=== PATIENT | male | born 1975 | race Caucasian/White ===

== ENCOUNTER → 2018-05-13 | Outpatient (CLI) | payer MEDICARE, OTHER ==
[~2018-05-13] MED LIST: IOHEXOL 240 MG/ML 50ML VIAL. PO ONE; IOHEXOL 300 MG/ML 100ML VIAL. IV ONE
--- NOTE | 2018-05-13 14:57 | RAD ---
CT of the abdomen and pelvis with and without contrast 05/13/2018 INDICATION: Abdominal pain. COMPARISON STUDY: None available TECHNIQUE: Multidetector CT imaging of the abdomen pelvis is obtained both before and after the administration of intravenous contrast. FINDINGS: Partially visualized lung bases are unremarkable. There is a 1 cm hypodense lesion in the inferior posterior right liver (axial image 31). Lesion has nonspecific attenuation and enhancement characteristics. Small focus of hypodensity along the falciform ligament segment is suggestive of focal fatty infiltration. Spleen is unremarkable. There is a possible punctate nonobstructing stone in the superior pole left kidney (noncontrast enhanced coronal image 57. No other evidence of nephrolithiasis is seen. There is no hydronephrosis or acute obstructive uropathy. Pancreas is grossly unremarkable. Gallbladder is grossly unremarkable. No bowel obstruction is identified. Increased stool is noted throughout the colon. Correlate with evidence of constipation. The appendix is unremarkable in appearance. The bladder is grossly unremarkable in appearance. No significant free fluid or free air seen in the abdomen or pelvis. No evidence of acute osseous abnormality is identified. IMPRESSION: 1. Possible punctate nonobstructing stone, superior pole left kidney 2. 1 cm nonspecific hypodense lesion inferior posterior right liver. Consider hepatic protocol MRI for further characterization. 3. Increased stool throughout the colon. Correlate with clinical evidence of constipation CT DOSING PQRS STATEMENT: One or more of the following individualized dose reduction techniques were utilized for this examination: 1. Automated exposure control 2. Adjustment of the mA and/or kV according to patient size 3. Use of iterative reconstruction technique. Electronically signed by: Kali Rogers MD (05/13/2018 2:54 PM) [facility]
== END | disposition home or self-care (01) ==
LOC: CT 10:13
PROVIDERS: ATTEND Family Medicine
DX: K76.9 Liver disease, unspecified (principal); K59.00 Constipation, unspecified
CPT/HCPCS: 74178; Q9966; Q9967

== ENCOUNTER → 2019-05-12 | Outpatient (CLI) | payer MEDICARE, OTHER ==
--- NOTE | 2019-05-12 13:22 | RAD ---
EXAM: Bilateral hips and pelvis, 5 views. HISTORY: Pain. COMPARISON: None. FINDINGS: A frontal view the pelvis and frontal and frog-leg views of both hips are obtained. There is no fracture, dislocation or subluxation. There is contrast within the colon and bladder due to a recent CT. There are few tiny benign bone islands. There is minimal suspected degenerative subchondral cyst formation involving the right greater than left femoral head-neck junction. IMPRESSION: 1. Minimal degenerative subchondral cyst formation involving the right greater than left femoral head-neck junction. 2. No acute osseous finding. Electronically signed by: María Garnica MD (05/12/2019 1:20 PM) [facility]
--- NOTE | 2019-05-12 14:20 | RAD ---
EXAM: CT ABDOMEN/PELVIS WITH CONTRAST. HISTORY: Left lower quadrant pain. TECHNIQUE: Computed tomography of the abdomen and pelvis was performed after the intravenous administration of iodinated contrast. COMPARISON: 05/13/2018. FINDINGS: Lung windows through the visualized portions of the bases reveal mild atelectasis. Bone windows reveal no suspicious lesions. A 13 mm hypoattenuating focus within hepatic segment 6 on image 36 is stable and likely a benign lesion such as a hemangioma. The gallbladder, pancreas, adrenal glands, spleen and kidneys are unremarkable. The appendix is not inflamed. There are no inflammatory changes in the left lower quadrant. There is no small bowel obstruction. There are no pathologically enlarged lymph nodes. IMPRESSION: 1. No cause for acute pain is identified. *One or more of the following individualized dose reduction techniques were utilized for this examination: 1. Automated exposure control. 2. Adjustment of the mA and/or kV according to patient size. 3. Use of iterative reconstruction technique. Electronically signed by: Ludwig Nunez MD (05/12/2019 2:18 PM) [facility]
== END | disposition home or self-care (01) ==
LOC: CT 10:02
PROVIDERS: ATTEND Family Medicine
DX: M25.852 Other specified joint disorders, left hip (principal); M25.851 Other specified joint disorders, right hip; R10.32 Left lower quadrant pain; J98.11 Atelectasis
CPT/HCPCS: 73521; 74177; Q9966; Q9967

== ENCOUNTER → 2019-06-05 | Day surgery (SDC) | payer MEDICAID, MEDICARE ==
[~2019-06-05] MED LIST changes: +GABA800T5 PO; -IOHEXOL 240 MG/ML 50ML VIAL. PO ONE; -IOHEXOL 300 MG/ML 100ML VIAL. IV ONE; +IV RINGERS,LACTATED 1000ML 1,000 ML IV SCH; +LEVO100T5 PO; +LIDOCAINE 2% PF 5 ML VIAL. ONE; +MIRT15TA90 PO; +PROPOFOL 40 ML IV ONE
[2019-06-05 14:15] VITALS: BP 115/65
--- NOTE | 2019-06-06 18:06 | PATHOLOGY ---
[facility] Accession Number: [id number] . 01 Material submitted: . colon - SIGMOID POLYP. Modifiers: sigmoid . 01 Clinical history: . Abdominal pain, rectal bleeding . 02 Diagnosis: Colon biopsies, sigmoid polyps: - Tubular adenoma (1). - Hyperplastic polyp (1). . (JPM:albertina; 06/06/2019) QMS 06/06/2019 0928 Local . 02 Comment: There is no high grade dysplasia or evidence of malignancy. . 02 Electronically signed: . Fritz Correa MD, Pathologist NPI- [id number] . 01 Gross description: . Received in formalin labeled "Juan Waldrop, sigmoid polyp," is a single segment of bee soft tissue measuring 0.5 cm in maximum dimension. The specimen is entirely submitted in cassette A1. (TSD; 06/05/2019) TOB/TOB 06/05/2019 1753 Local . 02 Pathologist provided ICD-10: D12.5, K63.5 . 02 CPT . 294146 Specimen Comment: A courtesy copy of this report has been sent to [phone], [phone] Specimen Comment: [id number] Specimen Comment: Report sent to and Performed at: 01 [facility] [address], [place], [place] [id number] MD Gurvinder Pisano MD Phone: [phone] Performed at: 02 [facility] [address] [place], [place] [id number] MD Fritz Correa MD Phone: [phone]
== END ==
LOC: ENDOS 12:29
PROVIDERS: ATTEND Internal Medicine Gastroenterology
DX: K92.1 Melena (principal); K63.5 Polyp of colon; K64.0 First degree hemorrhoids; F41.9 Anxiety disorder, unspecified; F32.9 Major depressive disorder, single episode, unspecified; M79.7 Fibromyalgia; E03.9 Hypothyroidism, unspecified; F15.90 Other stimulant use, unspecified, uncomplicated; F17.210 Nicotine dependence, cigarettes, uncomplicated; Z88.6 Allergy status to analgesic agent; Z72.89 Other problems related to lifestyle
CPT/HCPCS: 45380; J2001; J2704; 88305

== ENCOUNTER → 2019-06-11 | Outpatient (CLI) | payer MEDICARE, OTHER ==
[2019-06-05 14:15] VITALS: BP 115/65
[~2019-06-11] MED LIST changes: -IV RINGERS,LACTATED 1000ML 1,000 ML IV SCH; -LIDOCAINE 2% PF 5 ML VIAL. ONE; -PROPOFOL 40 ML IV ONE
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
== END | disposition home or self-care (01) ==
LOC: PNCL 10:46
PROVIDERS: ATTEND Anesthesiology
DX: M54.5 Low back pain (principal); M79.605 Pain in left leg; M79.604 Pain in right leg; M19.90 Unspecified osteoarthritis, unspecified site; M79.7 Fibromyalgia; F17.200 Nicotine dependence, unspecified, uncomplicated; Z88.6 Allergy status to analgesic agent; Z91.041 Radiographic dye allergy status
CPT/HCPCS: G0463

== ENCOUNTER → 2019-06-16 | Outpatient (CLI) | payer MEDICARE, OTHER ==
[2019-06-05 14:15] VITALS: BP 115/65
--- NOTE | 2019-06-16 12:27 | RAD ---
EXAMINATION: Magnetic resonance imaging (MRI) of the cervical spine without contrast 06/16/2019 10:30 AM HISTORY: Pain with radiculopathy in both arms and hands. TECHNIQUE: Multiplanar multi-weighted MRI of the cervical spine was performed without intravenous contrast using the standard cervical spine protocol. Contrast information: None administered COMPARISON: None available. FINDINGS: The alignment of the cervical spine is normal. Anterior cervical discectomy and fusion hardware is identified from C5 through C7. Vertebral bodies demonstrate normal signal intensity on all sequences. No acute fracture is identified; however, if trauma is suspected, a CT scan would be a more sensitive examination for fractures. The craniocervical junction is normal. The visualized portions of the skull base and the posterior fossa are normal. The spinal cord demonstrates normal signal intensity on all sequences. Mild disc height loss at C4-C5. No soft tissue abnormality is identified. Normal signal voids are present in the vertebral arteries. C2-C3: There is mild disc bulge. Mild left facet arthropathy. Mild left neuroforaminal stenosis. No spinal canal stenosis. C3-C4: There is mild disc bulge. No significant facet arthropathy. Mild left uncovertebral joint disease. Mild left neuroforaminal stenosis. No spinal canal stenosis. C4-C5: There is a posterior disc osteophyte complex. Mild facet arthropathy. No neuroforaminal or spinal canal stenosis. C5-C6: This level is fused. No neuroforaminal or spinal canal stenosis. C6-C7: This level is fused. No significant neuroforaminal or spinal canal stenosis. C7-T1: There is mild disc bulge. There is moderate facet arthropathy. Mild left uncovertebral joint disease. Mild left neuroforaminal stenosis. No spinal canal stenosis. IMPRESSION: Anterior cervical discectomy and fusion hardware is identified from C5 through C7. No evidence for hardware failure. Mild degenerative changes of the cervical spine as described in detail above. Electronically signed by: Bree Eubanks MD (06/16/2019 12:24 PM) [facility]
--- NOTE | 2019-06-16 12:37 | RAD ---
EXAMINATION: Magnetic resonance imaging (MRI) of the lumbar spine without contrast 06/16/2019 11:15 AM HISTORY: Pain with radiculopathy in both arms, hands, legs and feet TECHNIQUE: Multiplanar multi-weighted MRI of the lumbar spine was performed without intravenous contrast using the standard lumbar spine protocol. Contrast information: None administered. COMPARISON: None available. FINDINGS: There is minimal retrolisthesis of L5 on S1. Vertebral bodies demonstrate normal signal intensity on all sequences. There are no compression fractures. The conus medullaris terminates at the level of L1. The distal spinal cord signal intensity is normal. Schmorl's node is identified involving the superior endplate of L1 and L2 without significant height loss. There is disc desiccation at all levels from L2-L3 through L5-S1. Limited views of the abdomen and pelvis show no soft tissue abnormality. The aorta is normal. L1-L2: The disc is normal in configuration. There is no facet arthropathy. There is no neuroforaminal stenosis. There is no spinal canal stenosis. L2-L3: There is mild disc bulge. There is no facet arthropathy. There is no neuroforaminal stenosis. There is no spinal canal stenosis. L3-L4: The disc is normal in configuration. There is no facet arthropathy. There is no neuroforaminal stenosis. There is no spinal canal stenosis. L4-L5: There is mild disc bulge with central disc protrusion. There is mild facet arthropathy. There is mild neuroforaminal stenosis. There is no spinal canal stenosis. L5-S1: Mild disc bulge. There is mild to moderate facet arthropathy. There is mild left neuroforaminal stenosis. There is no spinal canal stenosis. IMPRESSION: Mild degenerative changes of the lumbar spine as described in detail above. Electronically signed by: Bree Eubanks MD (06/16/2019 12:34 PM) [facility]
== END ==
LOC: MRI 09:51
PROVIDERS: ATTEND Anesthesiology
DX: M51.16 Intervertebral disc disorders with radiculopathy, lumbar region (principal)
CPT/HCPCS: 72141; 72148

== ENCOUNTER → 2019-07-09 | Outpatient (CLI) | payer MEDICARE ==
[2019-06-05 14:15] VITALS: BP 115/65
--- NOTE | 2019-07-09 14:31 | PAIN ---
DATE OF SERVICE: 07/09/2019 PROGRESS NOTE FOR PAIN CLINIC DIAGNOSES: 1. Lumbar radiculopathy with lumbar degenerative disk disease, lumbar and lumbosacral spondylosis. 2. Cervical radiculopathy with cervical degenerative disk disease, post-cervical laminectomy syndrome and cervical spondylosis. HISTORY OF PRESENT ILLNESS: The patient is a 44-year-old male who returns for followup status post initial evaluation and status post recent MRI scans of both cervical and lumbar spines. We discussed these with the patient today with the cervical spine showing some degenerative changes, anterior cervical diskectomy and fusion hardware from C5 through C7. No evidence of hardware failure, mild degenerative changes throughout the lumbar spine showing mild degenerative changes of lumbar spine with some central disk protrusion at L4-L5, but otherwise no spinal stenosis or other abnormalities. The patient reports still significant pain in the low back, bilateral lower extremities in the hips and thighs, especially in the back itself with extension of the spine. Forward flexion, right and left lateral rotation and the base of the neck and shoulders, worse on the left than the right, but present bilaterally. The patient reports also pain in the neck itself with rotation as well as extension of the cervical spine. The patient reports it is aching, sharp, dull, shooting, tingling, burning, rates a 5 on a scale of 10 at its worst over the past week, 3 on average, 1 at its least and is a 3 today. The patient reports no new motor or sensory deficits, no bowel or bladder incontinence, but still significant pain, most significantly in the low back, but also in the neck causing some headaches as well. The patient reports no new motor or sensory deficits, no new bowel or bladder incontinence. PHYSICAL EXAMINATION: VITAL SIGNS: The patient's blood pressure 132/80, pulse 81, respirations 18, temperature 98.5 degrees Fahrenheit, height is 5 feet 11 inches, weighs 171 pounds. GENERAL: The patient is awake, alert, oriented, appropriate, very pleasant demeanor. HEENT: Shows normocephalic, atraumatic. Extraocular movements are intact and symmetrical. Oral cavity: Mucous membranes moist and pink. Dentition is intact. NECK: Shows anterior throat supple without palpable lymphadenopathy noted. Swallow reflex symmetrical. CHEST: Shows normal on inspection. Breath sounds are clear bilaterally. HEART: Shows S1, S2 clear. ABDOMEN: Soft, nontender, nondistended. BACK: Shows spine grossly in the midline. Cervical paraspinous muscle shows symmetrical on inspection, with palpation shows some moderate tenderness diffusely, bilaterally and diffusely without significant radiation. The patient does show increased pain with extension of the cervical spine, but not with forward flexion. Right and left lateral rotation is nonspecifically tender bilaterally. The patient has a well-healed surgical scar on the anterior throat. Swallow reflex symmetrical. Lower back shows lumbar paraspinous muscle shows symmetrical without evidence of atrophy or hypertrophy, normal lordotic curvature. Lumbar paraspinous muscle shows symmetrical, on palpation shows some moderate tenderness diffusely bilaterally throughout the upper, middle and lower distribution of the paraspinous muscles, more on the lower distribution, right and left equal increased pain with extension of the lumbar spine and axial loading in the low back, better with forward flexion, right and left lateral rotation is moderately tender bilaterally. EXTREMITIES: The patient's extremities show upper extremity deep tendon reflexes 2+ in the biceps, triceps tendons. Motor exam is strong with barber tool sharpener strength rated at 5/5. Lower extremities show 1+ in the patellar and tendo calcaneus tendons. Motor exam is strong with 5/5 dorsiflexion, extension, quadriceps and hamstring flexion. Peripheral pulses are 2+ radial, 1+ posterior tibia. No peripheral edema is noted in the upper or lower extremities. Options were discussed with the patient. The patient's old chart was reviewed as his current medication regimen updated. Current review of systems updated today as well. We will first fit the patient with a lumbar supportive back brace. We did discuss potential lumbar facet injections as well as his chief complaint is low back pain, which seems to be rotational and facetogenic in quality. The patient will consider this. We will have him return to clinic after a back brace is fitted but still significant pain. We will proceed with diagnostic lumbar facet joint injections at that time. ALEE MELVIN MD DR: JEFE/danielle JOB#: [id number] / [id number]
== END | disposition home or self-care (01) ==
LOC: PNCL 10:36
PROVIDERS: ATTEND Anesthesiology
DX: M51.16 Intervertebral disc disorders with radiculopathy, lumbar region (principal); M47.27 Other spondylosis with radiculopathy, lumbosacral region; M50.10 Cervical disc disorder with radiculopathy, unspecified cervical region; M96.1 Postlaminectomy syndrome, not elsewhere classified
CPT/HCPCS: G0463

== ENCOUNTER → 2019-11-05 | Outpatient (CLI) | payer MEDICARE, OTHER ==
[2019-06-05 14:15] VITALS: BP 115/65
[~2019-11-05] MED LIST changes: +BUPIVACAINE MPF 0.25% 10 ML VIAL. ONE; +IOHEXOL 180 MG/ML 10 ML VIAL. ONE; +methylPREDNISolone ACETATE 40 MG/ML VIAL. ONE; +methylPREDNISolone ACETATE 80 MG/ML VIAL. ONE
--- NOTE | 2019-11-05 13:13 | PAIN ---
DATE OF SERVICE: 11/05/2019 PROGRESS NOTE FOR PAIN CLINIC DIAGNOSES: 1. Lumbar radiculopathy with lumbar degenerative disk disease and lumbar spondylosis. 2. Cervical radiculopathy with cervical degenerative disk disease and cervical post-laminectomy syndrome. 3. Cervical spondylosis. HISTORY OF PRESENT ILLNESS: The patient is a 44-year-old male who returns for followup status post initial evaluation and MRI evaluation of cervical and lumbar spine. The patient returns today and scheduled for lumbar facet joint injections today. He has significant pain in the low back bilaterally with some radiating pain in the upper mid back, mostly in the low back, occasionally in the right hip with some burning sensation in the right groin as well. The patient reports his muscles are jumping in this area, increased spasticity in the low back itself, worse with activity, walking, standing, changing positions, awakens him from sleep about every 3-4 hours. The patient reports it is aching, tingling, and stabbing, described as radiating across the back, worse with extension and axial loading of the lumbar spine, better with forward flexion, but also worse with right and left lateral rotation. The patient rates his pain as a 7 on a scale of 10 at its worst over the past week, 4 on average, 2 at its least and is a 4 today. The patient reports no new motor or sensory deficits, no new bowel or bladder incontinence. PHYSICAL EXAMINATION: VITAL SIGNS: The patient's blood pressure 124/84, pulse 81, respirations are 20, temperature 98.2 degrees Fahrenheit, height 70 inches, weighs 170 pounds. GENERAL: The patient is awake, alert, oriented, appropriate, very pleasant demeanor. HEENT: Shows normocephalic, atraumatic. Extraocular movements are intact and symmetrical. Oral cavity shows mucous membranes moist and pink. Dentition is intact. NECK: Shows anterior throat supple without palpable lymphadenopathy noted. Swallow reflex symmetrical. CHEST: Shows normal on inspection. Breath sounds clear to auscultation bilaterally. HEART: Shows S1, S2 clear. No murmurs auscultated. ABDOMEN: Soft, nontender, nondistended. No palpable organomegaly is noted. There is no rebound or guarding demonstrated. BACK: Shows spine grossly in the midline. Normal appearing thoracic kyphosis and lumbar lordotic curvature. Lumbar paraspinous muscle shows symmetrical on inspection, with palpation shows some moderate tenderness diffusely throughout the upper, middle and lower distribution of paraspinous muscles, very firm, tender musculature bilaterally. The patient shows good rotational motion with some moderate pain in right and left lateral rotation slightly more to the right at 10 degrees with significant pain with extension 10 degrees across the low back bilaterally, again worse on the right side, decreased with forward flexion, but not completely relieved at 45 degrees. EXTREMITIES: The patient's lower extremities show deep tendon reflexes at 1+ in the patellar and tendo calcaneus tendons. Motor exam is 5/5 with dorsiflexion, extension, quadriceps and hamstring flexion symmetrical. Peripheral pulses 1+ without edema bilaterally. Options were discussed with the patient. The patient's old chart was reviewed as his current medication regimen updated. Current review of systems updated today as well. We will proceed with bilateral L4-L5 and L5-S1 facet joint injections today with fluoroscopic guidance. Risks were discussed including but not limited to bleeding, infection, possibility of epidural hematoma, subsequent neurological compromise, dural puncture, headaches, spinal cord and/or nerve damage, side effects of steroid medication and poor results regarding pain control. The patient understands and wished to proceed. The patient will return to clinic in approximately 2 weeks for followup. He was counseled on return appointment, activity level and side effects to be aware of. DIAGNOSIS: Lumbar and lumbosacral spondylosis. PROCEDURE: Bilateral L4-L5 and L5-S1 facet joint injections using C-arm fluoroscopic guidance under sterile prep and drape using local anesthetic. MEDICATION INJECTED: A total of 120 mg Depo-Medrol plus 4 mL total of 0.25% bupivacaine and 2 mL of contrast. CONDITION AT DISCHARGE: Stable. The patient tolerated the procedure well, had no complications. ALEE MELVIN MD DR: JEFE/danielle JOB#: [id number] / [id number]
== END ==
LOC: PNCL 10:58
PROVIDERS: ATTEND Anesthesiology
DX: M51.16 Intervertebral disc disorders with radiculopathy, lumbar region (principal); M47.816 Spondylosis without myelopathy or radiculopathy, lumbar region; M50.10 Cervical disc disorder with radiculopathy, unspecified cervical region; M47.812 Spondylosis without myelopathy or radiculopathy, cervical region
CPT/HCPCS: 64493; 64494; 64495; J1030; J1040; J3490; Q9965; 64635; 64636

== ENCOUNTER → 2019-11-19 | Outpatient (CLI) | payer MEDICARE, OTHER ==
[2019-06-05 14:15] VITALS: BP 115/65
--- NOTE | 2019-11-19 12:51 | PAIN ---
DATE OF SERVICE: 11/19/2019 PROGRESS NOTE FOR PAIN CLINIC DIAGNOSES: 1. Lumbar radiculopathy with lumbar degenerative disk disease, lumbar and lumbosacral spondylosis. 2. Cervical radiculopathy with cervical degenerative disk disease and post-cervical laminectomy syndrome. HISTORY OF PRESENT ILLNESS: The patient is a 44-year-old male who returns for followup status post bilateral L4-L5 and L5-S1 facet joint injections. The patient reports about a 70% improvement for the first day or so after the injections and the pain returned fairly quickly. The patient reports it is across the low back bilaterally and sometimes into the hips posteriorly, but mostly in the back itself without significant radiation to lower extremities at this time. The patient reports no new motor or sensory deficits, no new bowel or bladder incontinence. Rates his pain as 6 on a scale of 10 at its worst over the past week, 5 on average, 2 at its least and is a 5 today. The patient reports it is aching, sharp, dull, tight, tingling, stabbing, sometimes radiating, but also pain in the base of the neck which is radiating to the right arm and upper extremity as a secondary complaint. The patient reports no new motor or sensory deficits. Reports he was doing quite well for the first day after the injections. The patient reports it does get back to baseline now, it is awakening him from sleep at night, worse with walking, standing, changing positions, especially extension of the lumbar spine, but not with forward flexion. PHYSICAL EXAMINATION: VITAL SIGNS: The patient's blood pressure 118/77, pulse 68, respirations 18, temperature is 98.7 degrees Fahrenheit, height is 70 inches, weight is 169 pounds. GENERAL: The patient is awake, alert, oriented, appropriate, very pleasant demeanor. HEENT: Shows normocephalic, atraumatic. Extraocular movements are intact and symmetrical. Oral cavity shows mucous membranes moist and pink. Dentition is intact. NECK: Shows anterior throat supple without palpable lymphadenopathy noted. Swallow reflex symmetrical. CHEST: Shows normal on inspection. Breath sounds are clear to auscultation bilaterally. No rales, rhonchi or wheezes auscultated. HEART: Shows S1, S2 clear. No murmurs auscultated. ABDOMEN: Soft, nontender, nondistended. No palpable organomegaly is noted. BACK: Shows spine grossly in the midline. Some slight flattening of the cervical lordotic curvature, minor increase in thoracic kyphosis and some slight flattening of lumbar lordotic curvature. Lumbar paraspinous muscle shows symmetrical on inspection, on palpation shows some moderate tenderness diffusely bilaterally, but only diffusely without significant radiation. The patient has good rotational motion of lumbar spine, moderate tenderness right and left, greater than 10 degrees, but significant tenderness with extension greater than 10 degrees, decreased with forward flexion, but not completely relieved at 45 degrees. No tenderness over the spinous processes, sacrum or sacroiliac regions. EXTREMITIES: The patient's lower extremities show deep tendon reflexes at 1+ in the patellar and tendo calcaneus tendons. Motor exam remains strong with 5/5 dorsiflexion, extension, quadriceps and hamstring flexion. Peripheral pulses are 1+ posterior tibia. No peripheral edema is noted. Options were discussed with the patient. The patient's old chart was reviewed as his current medication regimen updated. Current review of systems updated today as well. We will proceed with bilateral L4-L5 and L5-S1 facet joint injections today with fluoroscopic guidance. Risks were again discussed including, but not limited to bleeding, infection, possibility of epidural hematoma, subsequent neurological compromise, dural puncture, headaches, spinal cord and/or nerve damage, side effects of steroid medication and poor results regarding pain control. The patient understands and wished to proceed. The patient will return to clinic in approximately 2 weeks for followup. He was counseled on return appointment, activity level and side effects to be aware of. DIAGNOSES: Lumbar and lumbosacral spondylosis. PROCEDURE: Lumbar L4-L5 and L5-S1 facet joint injections using C-arm fluoroscopic guidance under sterile prep and drape using local anesthetic. MEDICATION INJECTED: A total of 120 mg Depo-Medrol plus 4 mL of 0.25% bupivacaine, 2 mL total of contrast. CONDITION AT DISCHARGE: Stable. The patient tolerated procedure well, had no complications. ALEE MELVIN MD DR: JEFE/danielle JOB#: [id number] / [id number]
== END | disposition home or self-care (01) ==
LOC: PNCL 10:52
PROVIDERS: ATTEND Anesthesiology
DX: M51.16 Intervertebral disc disorders with radiculopathy, lumbar region (principal); M47.26 Other spondylosis with radiculopathy, lumbar region; M50.10 Cervical disc disorder with radiculopathy, unspecified cervical region; Z98.890 Other specified postprocedural states; Z91.041 Radiographic dye allergy status; Z88.8 Allergy status to other drugs, medicaments and biological substances
CPT/HCPCS: 64493; 64494; 64495; J1030; J1040; J3490; Q9965

== ENCOUNTER → 2019-12-03 | Outpatient (CLI) | payer MEDICARE, OTHER ==
[2019-06-05 14:15] VITALS: BP 115/65
[~2019-12-03] MED LIST changes: -IOHEXOL 180 MG/ML 10 ML VIAL. ONE; +LIDOCAINE 1% PF 2 ML VIAL. ONE; +LIDOCAINE 2% PF 5 ML VIAL. ONE
--- NOTE | 2019-12-03 16:33 | PAIN ---
DATE OF SERVICE: 12/03/2019 PROGRESS NOTE FOR PAIN CLINIC DIAGNOSES: 1. Lumbar and lumbosacral spondylosis. 2. Cervical radiculopathy with cervical degenerative disk disease and cervical post-laminectomy syndrome. HISTORY OF PRESENT ILLNESS: The patient is a 44-year-old male who returns for followup status post bilateral facet median branch blocks lumbar L4-L5 and L5-S1. The patient did very well with these on 2 occasions, had a 60-70% improvement after the last facet injection and 70% on the first injection. We discussed proceeding with radiofrequency ablation as he has had this done with his cervical spine in the past, did very well with this. The patient would like to proceed. We had arranged for him to come back today for this and he would like to go ahead. The patient reports still significant pain in the low back itself without significant radiation to lower extremities, but in the low back bilaterally, somewhat worse on the right than the left, but present bilaterally. The patient reports it is aching, dull, shooting across the back, tingling and burning in the back and legs at times, but mostly worse with extension, standing, especially with right and left lateral rotation, worse to the right and extension or axial loading in low back such as arching the back. The patient reports it is a 7 on a scale of 10 at its worse over the past week, 5 on average, 1 at its least and is a 7 today. The patient reports no new motor or sensory deficits, no new bowel or bladder incontinence. Reports it awakens him from sleep occasionally, but it varies, not every night, he could usually reposition or use heating pad on his low back, which decreases the pain. PHYSICAL EXAMINATION: VITAL SIGNS: The patient's blood pressure 125/85, pulse 61, respirations 16, temperature 98.0 degrees Fahrenheit, height 70 inches, weight is 166 pounds. GENERAL: The patient is awake, alert, oriented, appropriate, very pleasant demeanor. HEENT: Shows normocephalic, atraumatic. Extraocular movements are intact and symmetrical. Oral cavity shows mucous membranes moist and pink. Dentition is intact. NECK: Shows anterior throat supple without palpable lymphadenopathy noted. Swallow reflex symmetrical. CHEST: Shows normal on inspection. Breath sounds clear to auscultation bilaterally. HEART: Shows S1, S2 clear. No murmurs auscultated. ABDOMEN: Soft, nontender, nondistended. BACK: Shows spine grossly in the midline. Normal appearing thoracic kyphosis and some minor flattening of lumbar lordotic curvature. Lumbar paraspinous muscle shows symmetrical on inspection, which is firm, but with palpation and bilaterally in upper, middle and lower distribution of paraspinous musculature without specific trigger points or radiation. The patient has good rotational motion of lumbar spine, greater than 10 degrees right and left with some moderate tenderness to the right and mild tenderness to the left, and with extension he has significant pain across the low back, more on the right than the left, but this is better and decreased, but not completely relieved with forward flexion at 45 degrees, which is performed without difficulty. EXTREMITIES: Lower extremities show deep tendon reflexes 1+ patellar and tendo calcaneus tendons. Motor exam is 5/5 with dorsiflexion, extension, quadriceps and hamstring flexion symmetrical. Peripheral pulses are 1+ posterior tibia. No peripheral edema bilaterally. Options were discussed with the patient. The patient's old chart was reviewed as his current medication regimen updated. Current review of systems updated today as well. We will proceed with radiofrequency ablation of the medial branches at L4-L5 and L5-S1 bilaterally with fluoroscopic guidance today. Risks were discussed including but not limited to bleeding, infection, possibility of epidural hematoma, subsequent neurological compromise, dural puncture, headaches, spinal cord and/or nerve damage, side effects of steroid medication, potential thermal damage to the motor nerves and permanent ischemic damage or permanent thermal damage to the surrounding structures as well as poor results regarding pain control. The patient understands and wishes to proceed. The patient will return to clinic in approximately 3 weeks for followup. He was counseled as to return appointment, activity level and side effects to be aware of. DIAGNOSES: Lumbar and lumbosacral spondylosis. PROCEDURE: Bilateral L4-L5 and L5-S1 radiofrequency ablation of the medial branches under sterile prep and drape using local anesthetic. MEDICATION INJECTED: A total of 120 mg Depo-Medrol plus total of 6 mL of 0.25% bupivacaine, 1 mL at each level after radiofrequency ablation, total of 6 mL of 2% lidocaine after motor testing, but prior to radiofrequency ablation, 1 mL at each level. CONDITION AT DISCHARGE: Stable. The patient tolerated procedure well, had no complications. Please see radiofrequency flow sheet for levels, temperatures, impedances and a thermal ablation times. ALEE MELVIN MD DR: JEFE/danielle JOB#: [id number] / [id number]
== END ==
LOC: PNCL 12:56
PROVIDERS: ATTEND Anesthesiology
DX: M47.817 Spondylosis without myelopathy or radiculopathy, lumbosacral region (principal); M50.10 Cervical disc disorder with radiculopathy, unspecified cervical region; M96.1 Postlaminectomy syndrome, not elsewhere classified
CPT/HCPCS: 64635; 64636; J1030; J1040; J3490

== ENCOUNTER → 2020-01-14 | Outpatient (CLI) | payer MEDICARE, OTHER ==
[2019-06-05 14:15] VITALS: BP 115/65
[~2020-01-14] MED LIST changes: -BUPIVACAINE MPF 0.25% 10 ML VIAL. ONE; +IOHEXOL 180 MG/ML 10 ML VIAL. ONE; -LIDOCAINE 1% PF 2 ML VIAL. ONE; -LIDOCAINE 2% PF 5 ML VIAL. ONE
--- NOTE | 2020-01-14 10:32 | PAIN ---
DATE OF SERVICE: 01/14/2020 PROGRESS NOTE FOR PAIN CLINIC DIAGNOSES: 1. Lumbar radiculopathy with lumbar degenerative disk disease, lumbar spondylosis and lumbosacral spondylosis. 2. Cervical radiculopathy with cervical degenerative disk disease, cervical spondylosis and post-cervical laminectomy syndrome. HISTORY OF PRESENT ILLNESS: The patient is a 44-year-old male who returns for followup status post lumbar facet joint injections and radiofrequency ablation. He reports near 100% improvement for the first week or so and the pain is returning after a dog jumped on him on his right side and it is about 40% improved overall with his low back. The patient reports he is very happy with his level of decreasing pain; however, his chief complaint is neck and bilateral upper extremity, shoulder pain, and upper back pain. The patient reports it is worse on the right than the left, but present bilaterally, worse with activity, repetitive motions with upper extremities, lifting weights, fishing, reaching over his head with his right or left arm. The patient reports the pain is a 5 on a scale of 10 at its worst over the past week, 3 on average, 0 at its least and is a 3 today. The patient reports it is aching type, shooting, cramping at times, again worse on the right than the left into the right upper extremity. The patient reports no new motor or sensory deficits. Reports it does not awaken him from sleep at night. No new bowel or bladder incontinence or other complaints. PHYSICAL EXAMINATION: VITAL SIGNS: The patient's blood pressure 113/75, pulse 71, respirations 18, temperature 98.2 degrees Fahrenheit, height is 70 inches, weighs 170 pounds. GENERAL: The patient is awake, alert, oriented, appropriate, very pleasant demeanor. HEENT: Shows normocephalic, atraumatic. Extraocular movements are intact and symmetrical. Oral cavity: Mucous membranes moist and pink. Dentition is intact. NECK: Shows anterior throat supple without palpable lymphadenopathy noted. Swallow reflex symmetrical. CHEST: Shows normal on inspection. Breath sounds are clear bilaterally. HEART: Shows S1, S2 clear. No murmurs auscultated. ABDOMEN: Soft, nontender, nondistended. No palpable organomegaly is noted. No rebound or guarding demonstrated. BACK: Shows spine grossly in the midline. Cervical paraspinous muscle shows symmetrical on inspection, on palpation shows some moderate tenderness diffusely bilaterally going diffusely without significant radiation. The patient has good rotational motion of cervical spine, both laterally as well as full extension, full forward flexion without significant increase in pain. EXTREMITIES: Upper extremities show deep tendon reflexes 2+ in the biceps and triceps tendons. Motor exam is strong with health care facility administrator strength rated at 5/5 and equal bilaterally. Right shoulder shows some moderate tenderness with abduction of the shoulder past 45 degrees with resistance, but left is nontender. Lower extremities show deep tendon reflexes 1+ in the patellar and tendo calcaneus tendons. Motor exam is 5/5 with dorsiflexion, extension, quadriceps and hamstring flexion and equal. Low back shows lumbar paraspinous muscle shows symmetrical on inspection, with palpation shows some moderate tenderness diffusely in the middle and lower distribution, but only diffusely without significant radiation, without trigger points. Options were discussed with the patient. The patient's old chart was reviewed as his current medication regimen updated. Current review of systems updated today as well. We will proceed with a cervical epidural steroid injection today with fluoroscopic guidance. Risks were discussed including but not limited to bleeding, infection, possibility of epidural hematoma, subsequent neurological compromise, dural puncture, headaches, spinal cord and/or nerve damage, side effects of steroid medication and poor results regarding pain control. The patient understands and wished to proceed. The patient will return to clinic in approximately 2 weeks for followup. He was counseled on return appointment, activity level and side effects to be aware of. DIAGNOSES: Cervical radiculopathy with cervical degenerative disk disease and cervical post-laminectomy syndrome and cervical spondylosis. PROCEDURE: Cervical epidural steroid injection, translaminar approach at C6-C7 level using C-arm fluoroscopic guidance under sterile prep and drape using local anesthetic. MEDICATION INJECTED: A total of 120 mg Depo-Medrol plus 5 mL of preservative-free normal saline and 2 mL of contrast. CONDITION AT DISCHARGE: Stable. The patient tolerated the procedure well, had no complications. ALEE MELVIN MD DR: JEFE/danielle JOB#: [id number] / [id number]
== END | disposition home or self-care (01) ==
LOC: PNCL 09:23
PROVIDERS: ATTEND Anesthesiology
DX: M51.16 Intervertebral disc disorders with radiculopathy, lumbar region (principal); M48.061 Spinal stenosis, lumbar region without neurogenic claudication; M47.892 Other spondylosis, cervical region; M47.896 Other spondylosis, lumbar region; M96.1 Postlaminectomy syndrome, not elsewhere classified; Z79.899 Other long term (current) drug therapy; Z88.8 Allergy status to other drugs, medicaments and biological substances
CPT/HCPCS: 62321; J1030; J1040; Q9965

== ENCOUNTER → 2020-02-05 | Outpatient (CLI) | payer MEDICARE, OTHER ==
[2019-06-05 14:15] VITALS: BP 115/65
[~2020-02-05] MED LIST changes: +BENZ0.5T32 PO; +CRESTOR40 MG PO; +HYDR30CR33 RC; -IOHEXOL 180 MG/ML 10 ML VIAL. ONE; +TIZA4TAB2 PO; -methylPREDNISolone ACETATE 40 MG/ML VIAL. ONE; -methylPREDNISolone ACETATE 80 MG/ML VIAL. ONE
== END | disposition home or self-care (01) ==
LOC: LAB 13:10
PROVIDERS: ATTEND Surgery
DX: Z01.818 Encounter for other preprocedural examination (principal); Z11.59 Encounter for screening for other viral diseases; K64.9 Unspecified hemorrhoids
CPT/HCPCS: U0003-CS

== ENCOUNTER 2020-02-06 10:50 | Day surgery (SDC) | payer MEDICARE, OTHER ==
[~2020-02-06] VITALS: Ht 177.8 cm; Wt 74.5 kg
[~2020-02-06 10:50] MED LIST changes: +ACETAMINOPHEN 500 MG TABLET PO ONE; +HYDROmorphone 2 MG/ML VIAL IV PRN; +IV RINGERS,LACTATED 1000ML 1,000 ML IV SCH; +LIDOCAINE 1% PF 2 ML VIAL. ID PRN; +MORPHINE SULFATE 2 MG/ML VIAL. IV PRN; +ONDANSETRON PF 4 MG/2 ML VIAL. IV PRN; +PROCHLORPERAZINE 10 MG/2 ML VIAL. IV PRN; +ceFAZolin SODIUM IV Push 1 GM VIAL. IVP PRN; +fentaNYL PF VIAL 100 MCG/2 ML VIAL IV PRN
[2020-02-06] MEDS ORDERED: PROPOFOL 10 MG/ML (20ML) VIAL. IV ONE (11:57)
[2020-02-06] MEDS ORDERED: LIDOCAINE 2% PF 5 ML VIAL. ONE (11:57)
[2020-02-06] MEDS ORDERED: fentaNYL PF VIAL 250 MCG/5 ML VIAL ONE (11:58)
[2020-02-06] MEDS ORDERED: MIDAZOLAM HCL/PF 2 MG/2 ML VIAL. ONE (11:58)
[2020-02-06] MEDS ORDERED: NEOMY/BACITR/POLYMYXIN OINT PACKET. TP ONE ×5 (12:27→12:28)
[2020-02-06] MEDS ORDERED: BUPIVACAINE-EPI 0.25%-1:200000 MPF 30 ML VIAL. ONE (12:27)
[2020-02-06] MEDS ORDERED: DEXAMETHASONE SOD PHOS 4 MG/ML VIAL ONE (13:07)
[2020-02-06] MEDS ORDERED: SEVOFLURANE 31 TO 60 MINUTES. IH ONE (13:08)
[2020-02-06] MEDS ORDERED: ONDANSETRON PF 4 MG/2 ML VIAL. ONE (13:08)
--- NOTE | 2020-02-06 13:29 | PDOC4 ---
Operative Note Operative Note Date: February 06, 2020 at 1326 Preoperative diagnosis: Internal/external hemorrhoids with thrombosis Postoperative diagnosis: The same Procedure: Hemorrhoidectomy Specimen: Hemorrhoids Surgeon: Ry Dictation: Patient is a 45-year-old male is complained of enlarging hemorrhoids and pain at the anus. On exam he has enlarged external hemorrhoids with thrombosis as well as an internal hemorrhoid. The procedure of hemorrhoidectomy was explained to the patient detail was benefits were also discussed occluding bleeding infection, patient seemed understand and gave both verbal and written consent to have the procedure performed. Patient was taken to the operating room placed in the supine position general anesthesia was initiated once patient was sleeping intubated is placed in lithotomy positioning and his perineum was prepped and draped usual sterile fashion with Betadine scrub and solution. Area around the hemorrhoids was injected with quarter percent Marcaine with epinephrine and using the harmonic scalpel the hemorrhoids were excised sharply a hemostasis was controlled with a harmonic. The area was dressed with triple antibiotic ointment ABD and mesh pants. Patient was placed back in supine po sitioning awakened and extubated in the operating room taken to recovery in stable condition all sponge instrument needle counts listed as correct estimated blood loss minimal JOSE CHU MD Feb 06, 2020 13:29
--- NOTE | 2020-02-06 13:31 | DISCH ---
DISCHARGE INSTRUCTIONS Condition on Discharge Condition on Discharge: Stable Activity After Discharge Activity Instructions for Disc: Avoid exertion Diet after Discharge Diet after Discharge: Regular Wound Incision Care Other wound/incision instructi: May shower in 24 hours Contacting the after DC Call your doctor for: If your condition worsens Follow-Up Follow up with: Follow-up Dr. Chu in 2 weeks JOSE CHU MD Feb 06, 2020 13:31
[2020-02-06] MEDS ORDERED: oxyCODONE/APAP 5/325 1 TAB TABLET PO ONE (13:45)
[2020-02-06] MEDS ORDERED: fentaNYL PF VIAL 100 MCG/2 ML VIAL ONE (13:50)
[2020-02-06] MEDS ORDERED: oxyCODONE/APAP 5/325 1 TAB TABLET ONE (13:51)
[2020-02-06] MEDS: fentaNYL PF VIAL 100 MCG/2 ML VIAL IV PRN ×2 (13:53→14:01)
[2020-02-06 14:05] VITALS: BP 109/64
--- NOTE | 2020-02-10 09:07 | PATHOLOGY ---
[facility] Accession Number: [id number] . 01 Material submitted: . hemorrhoids - HEMORRHOID . 01 Clinical history: . Hemorrhoid. . 02 Diagnosis: Segment of skin and anal mucosa and underlying fibromuscular tissue, hemorrhoidectomy: - Hemorrhoids, showing focal thrombosis and early organization. - Chronic inflammation. . (JPM:mm; 02/09/2020) [facility] 02/09/2020 1646 Local . 02 Comment: There is no evidence of malignancy. . (JPM:mm; 02/09/2020) . 02 Electronically signed: . Fritz Correa MD, Pathologist NPI- [id number] . 01 Gross description: . Received in formalin labeled "Palma, Juan, hemorrhoid" is a portion of bee-white wrinkled skin and bee-brown possible mucosa measuring 3.9 x 2.0 x 2.0 cm. The specimen is sectioned to reveal a bee-white fibrotic cut surface with dilated blood vessels. Flight Service Agent tissue is submitted in cassette A1. ([facility]; 02/08/2020) [facility] 02/08/2020 1039 Local . 02 Pathologist provided ICD-10: K64.5 . 02 CPT . 940866 Specimen Comment: A courtesy copy of this report has been sent to [phone], [phone] Specimen Comment: [id number] Specimen Comment: Report sent to / DR OVERTON Performed at: 01 [facility] [address] [facility] [address], [place] [id number] MD Gurvinder Pisano MD Phone: [phone] Performed at: 02 [facility] [address] [place], [place] [id number] MD Fritz Correa MD Phone: [phone]
== END 2020-02-06 14:30 | disposition home or self-care (01) ==
LOC: SURG 10:50
PROVIDERS: ATTEND Surgery
DX: K64.5 Perianal venous thrombosis (principal); F17.210 Nicotine dependence, cigarettes, uncomplicated; E03.9 Hypothyroidism, unspecified; F10.10 Alcohol abuse, uncomplicated; Z79.899 Other long term (current) drug therapy; Z98.890 Other specified postprocedural states; Z88.8 Allergy status to other drugs, medicaments and biological substances; Z91.041 Radiographic dye allergy status
CPT/HCPCS: 46255; 87426; 88304; A7015; J0690; J1100; J2250; J2405; J2704; J3010; J3490; A4461

== ENCOUNTER → 2020-03-25 | Outpatient (CLI) | payer MEDICARE, OTHER ==
[~2020-03-25] MED LIST changes: -ACETAMINOPHEN 500 MG TABLET PO ONE; -HYDROmorphone 2 MG/ML VIAL IV PRN; +IOHEXOL 180 MG/ML 10 ML VIAL. ONE; -IV RINGERS,LACTATED 1000ML 1,000 ML IV SCH; -LIDOCAINE 1% PF 2 ML VIAL. ID PRN; -MORPHINE SULFATE 2 MG/ML VIAL. IV PRN; -ONDANSETRON PF 4 MG/2 ML VIAL. IV PRN; -PROCHLORPERAZINE 10 MG/2 ML VIAL. IV PRN; -ceFAZolin SODIUM IV Push 1 GM VIAL. IVP PRN; -fentaNYL PF VIAL 100 MCG/2 ML VIAL IV PRN; +methylPREDNISolone ACETATE 40 MG/ML VIAL. ONE; +methylPREDNISolone ACETATE 80 MG/ML VIAL. ONE
--- NOTE | 2020-03-25 12:13 | PDOC ---
Progress Note - Pain Clinic Date of Service: DOS: DATE: 03/25/20 TIME: 12:09 Diagnosis: Dx: Lumbar radiculopathy with lumbar degenerative disease and lumbar spondylosis Cervical radiculopathy with cervical degenerative disease and cervical postlaminectomy syndrome Thoracic radiculopathy with thoracic degenerative disc disease History or Present Illness: HPI: 45-year-old male returns follow-up status post cervical epidural steroid injection x1 January 14, 2020. Patient reports doing much better about 75% improvement after that and also his low back is still doing well after radiofrequency ablation which was in November of this year. Patient reports his m ain complaint is midthoracic pain with pain rating around bilaterally right and left thoracic cage and into the front of the sternum with significant pain. Patient ports a 10 on scale 10 is worse over the past week 7 on average 3 this least is a 7 today. Patient describes the pain is shooting burning stabbing on and off in intensity but unbearable at times. Reports no loss of motor function but significant pain which he can get to decrease with certain positions sitting or standing his back and rotating his back forward. Patient reports was much worse last week not as bad this week but still significant and a 7 on a scale of 10. Patient reports no new motor or sensory deficits no new bowel or bladder con's or other complaints. Physical Exam: VS: Blood pressure is 117/90 pulse 94 respirations 16 temperature 97.9 F height is 70 inches weight is 167 pounds PE: PHYSICAL EXAMINATION: GENERAL: The patient is awake, alert, oriented, appropriate, very pleasant demeanor HEENT: Shows normocephalic, atraumatic. Extraocular movements are intact and symmetrical. NECK: Shows anterior throat supple without palpable lymphadenopathy noted. Swallow reflex symmetrical. CHEST: Shows normal on inspection. Breath sounds are clear bilaterally, no rales rhonchi or wheezes auscultated. HEART: Shows S1, S2 clear. No murmurs auscultated. ABDOMEN: Soft, nontender, nondistended. No palpable organomegaly is noted. No rebound or guarding demonstrated. BACK: Shows spine grossly in the midline. Normal-appearing cervical lordotic curvature. There is slightly increased thoracic kyphosis, some minor flattening of the lumbar lordotic curvature. Lumbar paraspinous muscles show symmetrical on inspection, on palpation shows some moderate tenderness diffusely throughout the upper, middle and lower distribution of the paraspinous muscles bilaterally and also into the lower thoracic paraspinous musculature, firm and tender, but without specific trigger points, without radiation of pain. The patient has good rotational motion of the lumbar spine, as well as a thoracic spine, both laterally as well as extension and flexion without significant difficulty. No tenderness over the thoracic and lumbar spinous processes, sacrum or sacroiliac regions. EXTREMITIES: Lower extremities show deep tendon reflexes 1+ in the patellar and tendo calcaneus tendons. Motor exam is 5 on a scale of 5 with right dorsiflexion, extension, quadriceps and hamstring flexion and 5/5 on the left. Peripheral pulses are 1+ posterior tibial. No peripheral edema is noted bilaterally. Lower extremities are warm and dry to touch, equal in color and appearance. SKIN: Shows warm and dry, good turgor. No edema. No sores, rashes or bruising throughout. Procedure: Procedure: Options were discussed with the patient. Patient's old chart was reviewed his current medication regimen updated current review of systems updated today as well. We will proceed with a thoracic epidural steroid injection today with fluoroscopic guidance. Risks were discussed including but not limited to: Bleeding, infection, possibility of epidural hematoma and subsequent neurological compromise, dural puncture, headaches, spinal cord and/or nerve damage, side effects of steroid medication, and poor results regarding pain control. Patient understands wished to proceed. Patient return to clinic in approximate 2 weeks for follow-up. Patient was counseled as to return appointment activity level and side effects to be aware of. Medication Injected: Med Injected: Procedure is lumbar epidural steroid injection under local anesthetic using sterile prep and drape at the T6-7 level using C-arm fluoroscopic guidance in both AP and lateral views medications injected is 120 mg Depo-Medrol + 10 mL preservative-free normal saline and 2 mL contrast- condition at discharge is stable patient tolerated procedure well had no complications. Condition at Discharge: Condition at Discharge: Condition at discharge stable patient tolerated the procedure well had no complications. ALEE MELVIN MD Mar 25, 2020 12:13
== END | disposition home or self-care (01) ==
LOC: PNCL 10:53
PROVIDERS: ATTEND Anesthesiology
DX: M50.123 Cervical disc disorder at C6-C7 level with radiculopathy (principal); M51.16 Intervertebral disc disorders with radiculopathy, lumbar region; M47.896 Other spondylosis, lumbar region; M51.14 Intervertebral disc disorders with radiculopathy, thoracic region; M96.1 Postlaminectomy syndrome, not elsewhere classified; E03.9 Hypothyroidism, unspecified; Z79.899 Other long term (current) drug therapy; Z88.8 Allergy status to other drugs, medicaments and biological substances
CPT/HCPCS: 62321; J1030; J1040; Q9965

== ENCOUNTER → 2020-04-08 | Outpatient (CLI) | payer MEDICARE, OTHER ==
--- NOTE | 2020-04-08 10:28 | PDOC ---
Progress Note - Pain Clinic Date of Service: DOS: DATE: 04/08/20 TIME: 10:24 Diagnosis: Dx: Lumbar radiculopathy with lumbar degenerative disc disease and lumbar and lumbosacral spondylosis Cervical radiculopathy with cervical degenerative disc disease and cervical postlaminectomy syndrome Thoracic radiculopathy with thoracic degenerative disc disease History or Present Illness: HPI: 45-year-old male returns follow-up status post cervical epidural injection x1 and thoracic epidural to injection x1. Patient reports about 50% improvement with the thoracic injection which is last visit now the pain returning in the mid back upper back and some in the shoulders as well but he is also having some problems with walking and standing secondary to pain right greater than left in the groin and hips. Patient reports with regard to his back his pain a 6 on scale 10 is worse of the past week 3 on average 1 its least it is a 6 today patient was aching sharp shooting stabbing severe at times worse with activity walking changing positions wakes him from sleep at every 3-4 hours. Patient reports initially he was doing much better with activity at home as well as traveling to [place] and comfort playing with his grandchildren much greater ease but the pain is returning. Physical Exam: VS: Blood pressure is 140/77 pulse 71 respirations 20 temperature is 98.1 F height is 70 inches weight is 169 pounds PE: PHYSICAL EXAMINATION: GENERAL: The patient is awake, alert, oriented, appropriate, very pleasant demeanor HEENT: Shows normocephalic, atraumatic. Extraocular movements are intact and symmetrical. NECK: Shows anterior throat supple without palpable lymphadenopathy noted. Swallow reflex symmetrical. CHEST: Shows normal on inspection. Breath sounds are clear bilaterally. HEART: Shows S1, S2 clear. No murmurs auscultated. ABDOMEN: Soft, nontender, nondistended. No palpable organomegaly is noted. No rebound or guarding demonstrated. BACK: Shows spine grossly in the midline. Normal-appearing cervical lordotic curvature. There is slightly increased thoracic kyphosis, some minor flattening of the lumbar lordotic curvature. Lumbar paraspinous muscles show symmetrical on inspection, on palpation shows some moderate tenderness diffusely throughout the upper, middle and lower distribution of the paraspinous muscles bilaterally and also into the lower thoracic paraspinous musculature, firm and tender, but without specific trigger points, without radiation of pain. The patient has good rotational motion of the lumbar spine, both laterally as well as extension and flexion without significant difficulty. Thoracic spine shows good rotation as well with extension and flexion with some moderate pain with all maneuvers including right and left lateral rotation. No tenderness over the spinous processes, sacrum or sacroiliac regions. EXTREMITIES: Lower extremities show deep tendon reflexes 1+ in the patellar and tendo calcaneus tendons. Motor exam is 5 on a scale of 5 with right dorsiflexion, extension, quadriceps and hamstring flexion and 5/5 on the left. Peripheral pulses are 1+ posterior tibial. No peripheral edema is noted bilaterally. Lower extremities are warm and dry to touch, equal in color and appearance. SKIN: Shows warm and dry, good turgor. No edema. No sores, rashes or bruising throughout. Procedure: Procedure: Options were discussed with the patient. Patient chart was reviewed his his current medication regimen updated current review of systems updated today as well. We will proceed with a second in the series third total thoracic epidural steroid injection with fluoroscopic guidance. Risks were discussed including but not limited to: Bleeding, infection, possibility of epidural hematoma and subsequent neurological compromise, dural puncture, headaches, spinal cord and/or nerve damage, side effects of steroid medication, and poor results regarding pain control. Patient understands wished to proceed. Patient will return to clinic in approximately 2 weeks for follow-up. In the meantime we will have bilateral hip films obtained to rule out any pathology causing significant hip pain Medication Injected: Med Injected: Procedure is thoracic epidural steroid injection under local anesthetic using sterile prep and drape at the T6-7 level using C-arm fluoroscopic guidance in both AP and lateral views medications injected is 120 mg Depo-Medrol + 10 mL preservative-free normal saline and 2 mL contrast- condition at discharge is stable patient tolerated procedure well had no complications. Condition at Discharge: Condition at Discharge: Condition at discharge is stable patient tolerated the procedure well and had no complications. ALEE MELVIN MD Apr 08, 2020 10:28
== END ==
LOC: PNCL 09:41
PROVIDERS: ATTEND Anesthesiology
DX: M50.123 Cervical disc disorder at C6-C7 level with radiculopathy (principal); M51.16 Intervertebral disc disorders with radiculopathy, lumbar region; M47.896 Other spondylosis, lumbar region; M46.1 Sacroiliitis, not elsewhere classified; M51.14 Intervertebral disc disorders with radiculopathy, thoracic region; E03.9 Hypothyroidism, unspecified; Z88.8 Allergy status to other drugs, medicaments and biological substances; Z79.899 Other long term (current) drug therapy
CPT/HCPCS: 62321; J1030; J1040; Q9965

== ENCOUNTER → 2020-04-09 | Outpatient (CLI) | payer MEDICARE, OTHER ==
[~2020-04-09] MED LIST changes: -IOHEXOL 180 MG/ML 10 ML VIAL. ONE; -methylPREDNISolone ACETATE 40 MG/ML VIAL. ONE; -methylPREDNISolone ACETATE 80 MG/ML VIAL. ONE
--- NOTE | 2020-04-09 10:32 | RAD ---
EXAM: AP pelvis, AP and lateral views of both hips DATE: 04/09/2020 12:00 AM INDICATION: Reason: CHRONIC BILATERAL HIP PAIN. HX OF NUMBEROUS BACK SURGERIES / Spl. Instructions: / History: COMPARISON: No Prior FINDINGS: No evidence of acute fracture or dislocation. Joint spaces are preserved without significant degenerative/proliferative change. No pubic symphysis or SI joint diastases. IMPRESSION: No evidence of acute fracture or dislocation. Electronically signed by: Hardik Jones MD (04/09/2020 10:29 AM) [id number]
== END ==
LOC: RAD 09:46
PROVIDERS: ATTEND Anesthesiology
DX: M25.551 Pain in right hip (principal); M25.552 Pain in left hip
CPT/HCPCS: 73521

== ENCOUNTER → 2020-06-15 | Outpatient (CLI) | payer MEDICARE, OTHER ==
[~2020-06-15] MED LIST changes: +BUPIVACAINE MPF 0.25% 10 ML VIAL. ONE; +PRAZ1CAP PO; +methylPREDNISolone ACETATE 40 MG/ML VIAL. ONE
--- NOTE | 2020-06-15 10:51 | PDOC ---
Progress Note - Pain Clinic Date of Service: DOS: DATE: 06/15/20 TIME: 10:46 Diagnosis: Dx: Lumbar radiculopathy with lumbar degenerative disease and lumbar and lumbosacral spondylosis Cervical radiculopathy with cervical degenerative disease and cervical postlaminectomy syndrome Thoracic radiculopathy thoracic degenerative disease Myofascial pain History or Present Illness: HPI: [age] of male returns follow-up status post thoracic epidural 2 injections x 2 and cervical injection x1 with good results patient reports about 50% improvement initially pain returning in the upper back mid back low back and into the right lower extremity patient reports significantly in the low back on the right side very tender with movement he is wearing a back brace now which seems to be fitting him well he is pleased with it and reports that it does help the pain to moderate extent but may be 20% patient reports pain is in the low back on the right side with radiation the posterior gluteus posterior thigh lateral thigh aching tingling burning quality unbearable at times in the leg and feels "hot" patient rates is an eight on scale ten is worse over the past week two on average to its least is a two today. Patient also has some pain in the base the neck and shoulder as well as the upper extremities. Patient reports no new motor or sensory deficits no new bowel or bladder incontinence or other complaints. Physical Exam: VS: Blood pressure is 147/99 pulse ninety-three respirations sixteen temperature ninety-seven height is 70 inches weight is 175 pounds PE: PHYSICAL EXAMINATION: GENERAL: The patient is awake, alert, oriented, appropriate, very pleasant demeanor HEENT: Shows normocephalic, atraumatic. Extraocular movements are intact and symmetrical. Oral cavity: Mucous membranes moist and pink. Dentition is intact. NECK: Shows anterior throat supple without palpable lymphadenopathy noted. Swallow reflex symmetrical. CHEST: Shows normal on inspection. Breath sounds are clear bilaterally, no rales rhonchi or wheezes. HEART: Shows S1, S2 clear. No murmurs auscultated. ABDOMEN: Soft, nontender, nondistended, obese. No palpable organomegaly is noted. No rebound or guarding demonstrated. BACK: Shows spine grossly in the midline. Normal-appearing cervical lordotic curvature. There is slightly increased thoracic kyphosis, some minor flattening of the lumbar lordotic curvature. Lumbar paraspinous muscles show symmetrical on inspection, on palpation shows some moderate tenderness diffusely throughout the upper, middle and lower distribution of the paraspinous musculature in the gluteus muscles with very firm ropelike musculature very tender but without specific radiation consistent with trigger point musculature, without radiation of pain. The patient has good rotational motion of the lumbar spine, both laterally as well as extension and flexion without significant difficulty. No tenderness over the spinous processes, sacrum or sacroiliac regions. EXTREMITIES: Lower extremities show deep tendon reflexes 1+ in the patellar and tendo calcaneus tendons. Motor exam is five on a scale of 5 with right dorsiflexion, extension, quadriceps and hamstring flexion and five/5 on the left. Peripheral pulses are 1+ posterior tibial. No peripheral edema is noted bilaterally. Lower extremities are warm and dry to touch, equal in color and appearance. Upper extremities show deep tendon reflexes 2+ in the bicep and triceps tendons motor exam strong with county judge strength rated 5 out of 5 as is bicep and tricep flexion bilaterally. SKIN: Shows warm and dry, good turgor. No edema. No sores, rashes or bruising throughout. Procedure: Procedure: Options were discussed with the patient. Patient chart was reviewed his his current medication regimen updated and review of systems updated today as well. We will proceed with trigger point injections of the right lumbar paraspinous posterior and right gluteus musculature. Risks were discussed including but not limited to bleeding infection possibility of intravascular injection sequelae spread local acetic numbness side effects of steroid medication and portal scarring pain control. Patient understands wished to proceed. Patient return to clinic in approximately 2 weeks for follow-up with counselors return appointment active level and side effects to be aware of. Medication Injected: Med Injected: Under sterile prep and drape patient's back was sterilely prepped and draped and over the right inferior lumbar paraspinous posture and gluteus trigger points were identified and injected using 25-gauge 1/2 inch needle after negative aspiration each injection site total of 5 cc 0.25 bupivacaine and 40 mg Depo- Medrol. Patient tolerated procedure well and had no complications. Condition at Discharge: Condition at Discharge: Condition at discharge stable ALEE MELVIN MD Jun 15, 2020 10:51
== END | disposition home or self-care (01) ==
LOC: PNCL 10:07
PROVIDERS: ATTEND Anesthesiology
DX: M51.16 Intervertebral disc disorders with radiculopathy, lumbar region (principal); M47.27 Other spondylosis with radiculopathy, lumbosacral region; M50.10 Cervical disc disorder with radiculopathy, unspecified cervical region; M96.1 Postlaminectomy syndrome, not elsewhere classified; M51.14 Intervertebral disc disorders with radiculopathy, thoracic region; M79.18 Myalgia, other site; E78.00 Pure hypercholesterolemia, unspecified; M19.90 Unspecified osteoarthritis, unspecified site; E03.9 Hypothyroidism, unspecified; F41.9 Anxiety disorder, unspecified; F32.9 Major depressive disorder, single episode, unspecified; Z79.899 Other long term (current) drug therapy; Z98.890 Other specified postprocedural states; Z87.891 Personal history of nicotine dependence; Z72.89 Other problems related to lifestyle; Z88.8 Allergy status to other drugs, medicaments and biological substances
CPT/HCPCS: 20552; J1030; J3490

== ENCOUNTER → 2020-09-02 | Outpatient (CLI) | payer MEDICARE, OTHER ==
[~2020-09-02] MED LIST changes: -BUPIVACAINE MPF 0.25% 10 ML VIAL. ONE; +IOHEXOL 180 MG/ML 10 ML VIAL. ONE; +methylPREDNISolone ACETATE 80 MG/ML VIAL. ONE
--- NOTE | 2020-09-02 12:19 | PDOC ---
Progress Note - Pain Clinic Date of Service: DOS: DATE: 09/02/20 TIME: 12:14 Diagnosis: Dx: Cervical radiculopathy with cervical degenerative disc disease and cervical postlaminectomy syndrome Thoracic radiculopathy with thoracic degenerative disc disease Lumbar radiculopathy with lumbar degenerative disc disease and lumbar and lumbosacral spondylosis History or Present Illness: HPI: 45-year-old male returns follow-up status post trigger point injections, cervical epidural steroid injections, thoracic epidural steroid injections, lumbar facet injections and radiofrequency ablation of the medial branches. Patient reports he is done well with all of these his chief complaint today is that the pain is returning in the base of the neck and shoulder as well as the upper back causing some headaches upper back pain mid back pain radiating around to his chest as well as in the bilateral shoulders and into the fourth and fifth fingers in the right and left hands. Patient reports some tingling in the low back and legs but his chief complaint is the neck shoulders and upper back. Patient rates his pain as a seven on scale ten is worse over the past week for an average to its least is a four today. Patient reports has been awakened from sleep at only once about every 6 hours. Patient reports no loss of motor function but significant tenderness with mobility taking care of his children at home activities at home as well as traveling. Patient describes the pain as tingling and radiating burning and stabbing aching sharp in the mid back upper back neck and shoulders on and off in intensity but always present. Patient reports no new motor or sensory deficits no bowel or bladder incontinence. Physical Exam: VS: Blood pressure is 134/91 pulse eighty-one respirations eighteen temperature is 98.4 F height is 70 inches weight is 191 pounds PE: PHYSICAL EXAMINATION: GENERAL: The patient is awake, alert, oriented, appropriate, very pleasant demeanor HEENT: Shows normocephalic, atraumatic. Extraocular movements are intact and symmetrical. Oral cavity: Mucous membranes moist and pink. Dentition is intact. NECK: Shows anterior throat supple without palpable lymphadenopathy noted. Swallow reflex symmetrical. CHEST: Shows normal on inspection. Breath sounds are clear bilaterally, no rales or rhonchi bilaterally. HEART: Shows S1, S2 clear. No murmurs auscultated. ABDOMEN: Soft, nontender, nondistended, obese. No palpable organomegaly is noted. BACK: Shows spine grossly in the midline. Normal-appearing cervical lordotic curvature. Cervical spine shows symmetrical inspection with palpation show some moderate tenderness in the cervical paraspinous posture bilaterally diffusely without significant radiation or trigger points. Patient shows good rotation motion cervical spine both laterally as well as extension flexion without significant increase in pain. There is increased thoracic kyphosis, olivia flattening of the lumbar lordotic curvature. Lumbar paraspinous muscles show symmetrical on inspection, on palpation shows some moderate tenderness diffusely throughout the upper, middle and lower distribution of the paraspinous muscles without specific trigger points, and without radiation of pain. The patient has good rotational motion of the lumbar spine, both laterally as well as extension and flexion without significant difficulty. No tenderness over the spinous pr ocesses, sacrum or sacroiliac regions. EXTREMITIES: Lower extremities show deep tendon reflexes 1+ in the patellar and tendo calcaneus tendons. Motor exam is five on a scale of 5 with right dorsiflexion, extension, quadriceps and hamstring flexion and five/5 on the left. Peripheral pulses are 1+ posterior tibial. No peripheral edema is noted bilaterally. Lower extremities are warm and dry to touch, equal in color and appearance. Upper extremities show deep tendon reflexes 2+ in the bicep and triceps tendons motor exam is strong with manager truck strength rated 5 out of 5 as is bicep and tricep flexion bilaterally. Shoulder shrug is strong and intact without loss of strength on resistance as is abduction of the shoulders at 90 degrees bilaterally. SKIN: Shows warm and dry, good turgor. No edema. No sores, rashes or bruising throughout. Procedure: Procedure: Options were discussed with the patient. Patient's old chart was reviewed his his current medication regimen updated current review systems updated today as well. We will proceed with a cervical epidural steroid injection stable fluoroscopic guidance. Risks were discussed including but not limited to: Bleeding, infection, possibility of epidural hematoma and subsequent ne urological compromise, dural puncture, headaches, spinal cord and/or nerve damage, side effects of steroid medication, and poor results regarding pain control. Patient understands and wished to proceed. Patient will return to the clinic in approximate 2 weeks for follow-up, was counseled as to return appointment activity level and side effects to be aware of. Medication Injected: Med Injected: Procedure cervical epidural steroid injection at the C6-7 level, using local ane sthetic under sterile prep and drape using C-arm fluoroscopic guidance under local anesthesia medications injected ; one hundred twenty mg Depo-Medrol + five mL normal saline and 2 mL contrast; condition at discharge is stable patient tolerated procedure well. and had no complications Condition at Discharge: Condition at Discharge: Condition at discharge stable, patient tolerated procedure well and had no complications. ALEE MELVIN MD Sep 02, 2020 12:19
--- NOTE | 2020-09-02 12:24 | PDOC4 ---
PROCEDURE Procedure Patient was consented for cervical epidural steroid injection. Risks were d iscussed including but not limited to: Bleeding, infection, possibility of epidural hematoma and subsequent neurological compromise, dural puncture, headaches, spinal cord and/or nerve damage, side effects of steroid medication, and poor results regarding pain control. Patient understands and wished to proceed. Procedure cervical epidural steroid injection at the C6-7 level, using local anesthetic under sterile prep and drape using C-arm fluoroscopic guidance under local anesthesia medications injected ; 120 mg Depo-Medrol + 5 mL normal saline and 2 mL contrast; condition at discharge is stable patient tolerated procedure well. and had no complications ALEE MELVIN MD Sep 02, 2020 12:24
== END | disposition home or self-care (01) ==
LOC: PNCL 11:22
PROVIDERS: ATTEND Anesthesiology
DX: M50.10 Cervical disc disorder with radiculopathy, unspecified cervical region (principal); M96.1 Postlaminectomy syndrome, not elsewhere classified; M51.14 Intervertebral disc disorders with radiculopathy, thoracic region; M51.16 Intervertebral disc disorders with radiculopathy, lumbar region; M47.27 Other spondylosis with radiculopathy, lumbosacral region; E78.00 Pure hypercholesterolemia, unspecified; E03.9 Hypothyroidism, unspecified; F41.9 Anxiety disorder, unspecified; F32.9 Major depressive disorder, single episode, unspecified; M19.90 Unspecified osteoarthritis, unspecified site; Z79.899 Other long term (current) drug therapy; Z98.890 Other specified postprocedural states; Z87.891 Personal history of nicotine dependence; Z72.89 Other problems related to lifestyle; Z88.8 Allergy status to other drugs, medicaments and biological substances
CPT/HCPCS: 62321; J1030; J1040; Q9965; 77002

== ENCOUNTER → 2020-09-30 | Outpatient (CLI) | payer MEDICARE, OTHER ==
--- NOTE | 2020-09-30 10:45 | PDOC ---
Progress Note - Pain Clinic Date of Service: DOS: DATE: 09/30/20 TIME: 10:41 Diagnosis: Dx: Lumbar radiculopathy with lumbar degenerative disease and lumbar spondylosis Thoracic radiculopathy thoracic degenerative disc disease Cervical radiculopathy with cervical degenerative disease and cervical postlami nectomy syndrome History or Present Illness: HPI: 45-year-old male returns follow-up status post cervical epidural injection x1 on September 02, 2020. Patient reports very well at 75% improvement ability for about a week to 2 weeks patient ports pain returning down the base of neck and left upper extremity some in the right as well but mostly in the left side worse with activity repetitive motions reaching over his head with his left arm weightbearing weight lifting patient reports it wakes him from sleep if he lays on his left side. Patient reports his pain is a 8 on scale 10 is worse over the past week 5 on average to its least is a 5 today. Patient describes as aching and sharp shooting cramping sometimes radiating as well in the left arm and especially in the fourth and fifth fingers on the left hand. Patient reports no new motor or sensory deficits also some pain in the mid back upper back as well as the low back. Patient explained some concern over some rectal dysfunction as well and we will recommend starting with his primary care physician and possibly urology evaluation as well. Physical Exam: VS: Blood pressure is 140/98 pulse 94 respirations 18 temperature 98.4 F height is 6 foot weight is 197 pounds PE: PHYSICAL EXAMINATION: GENERAL: The patient is awake, alert, oriented, appropriate, very pleasant demeanor HEENT: Shows normocephalic, atraumatic. Extraocular movements are intact and symmetrical. Oral cavity: Mucous membranes moist and pink. Dentition is intact. NECK: Shows anterior throat supple without palpable lymphadenopathy noted. Swallow reflex symmetrical. CHEST: Shows normal on inspection. Breath sounds are clear bilaterally, no rales or rhonchi bilaterally. HEART: Shows S1, S2 clear. No murmurs auscultated. ABDOMEN: Soft, nontender, nondistended. No palpable organomegaly is noted. BACK: Shows spine grossly in the midline. Normal-appearing cervical lordotic curvature. Cervical paraspinous muscles show symmetrical inspection with palpation shows moderate tenderness diffusely in the inferior aspect cervical paraspinous muscles bilaterally. Patient shows good rotation of motion both laterally as well as extension with some moderate limitation in forward flexion with some mild tenderness as well. There is slightly increased thoracic kyphosis, some minor flattening of the lumbar lordotic curvature. Lumbar paraspinous muscles show symmetrical on inspection, on palpation shows some moderate tenderness diffusely throughout the upper, middle and lower distribution of the paraspinous muscles without specific trigger points, without radiation of pain. The patient has good rotational motion of the lumbar spine, both laterally as well as extension and flexion without significant difficulty. No tenderness over the spinous processes, sacrum or sacroiliac regions. EXTREMITIES: Lower extremities show deep tendon reflexes 1+ in the patellar and tendo calcaneus tendons. Motor exam is 5 on a scale of 5 with right dorsiflexion, extension, quadriceps and hamstring flexion and 5/5 on the left. Peripheral pulses are 1 posterior tibial. No peripheral edema is noted bilaterally. Lower extremities are warm and dry to touch, equal in color and appearance. Upper extremities show deep tendon reflexes 2+ in the bicep and tricep tendons motor exam is strong with 5 out of 5 shuttle route vehicle operator strength bicep and tricep flexion and equal and symmetrical. Peripheral pulses are 2+ radial no peripheral edema bilaterally. SKIN: Shows warm and dry, good turgor. No edema. No sores, rashes or bruising throughout. Procedure: Procedure: Options were discussed with the patient. Patient chart reviews his current medication regimen updated current review of systems updated today as well. We will proceed with a second in the series cervical epidural steroid traction stable fluoroscopic guidance. Risks were discussed including but not limited to: Bleeding, infection, possibility of epidural hematoma and subsequent neurological compromise, dural puncture, headaches, spinal cord and/or nerve damage, side effects of steroid medication, and poor results regarding pain control. Patient understands and wished to proceed. Return to clinic in approximate 2 weeks for follow-up, was counseled as return appointment active level and side effects to be aware of. Medication Injected: Med Injected: Procedure cervical epidural steroid injection at the C6-7 level, using local anesthetic under sterile prep and drape using C-arm fluoroscopic guidance under local anesthesia medications injected ; 120 mg Depo-Medrol + 5 mL normal saline and 2 mL contrast; condition at discharge is stable patient tolerated procedure well. and had no complications Condition at Discharge: Condition at Discharge: Condition at discharge stable, patient tolerated the procedure well and had no complications. ALEE MELVIN MD Sep 30, 2020 10:45
--- NOTE | 2020-09-30 10:45 | PDOC4 ---
PROCEDURE Procedure Patient was consented for cervical epidural steroid injection. Risks were d iscussed including but not limited to: Bleeding, infection, possibility of epidural hematoma and subsequent neurological compromise, dural puncture, headaches, spinal cord and/or nerve damage, side effects of steroid medication, and poor results regarding pain control. Patient understands and wished to proceed. Procedure cervical epidural steroid injection at the C6-7 level, using local anesthetic under sterile prep and drape using C-arm fluoroscopic guidance under local anesthesia medications injected ; 120 mg Depo-Medrol + 5 mL normal saline and 2 mL contrast; condition at discharge is stable patient tolerated procedure well. and had no complications ALEE MELVIN MD Sep 30, 2020 10:45
== END | disposition home or self-care (01) ==
LOC: PNCL 09:28
PROVIDERS: ATTEND Anesthesiology
DX: M50.10 Cervical disc disorder with radiculopathy, unspecified cervical region (principal); M51.16 Intervertebral disc disorders with radiculopathy, lumbar region; M51.14 Intervertebral disc disorders with radiculopathy, thoracic region; M47.26 Other spondylosis with radiculopathy, lumbar region; M96.1 Postlaminectomy syndrome, not elsewhere classified; E78.00 Pure hypercholesterolemia, unspecified; M19.90 Unspecified osteoarthritis, unspecified site; E03.9 Hypothyroidism, unspecified; F41.9 Anxiety disorder, unspecified; F32.9 Major depressive disorder, single episode, unspecified; Z87.891 Personal history of nicotine dependence; Z79.899 Other long term (current) drug therapy; Z98.890 Other specified postprocedural states; Z88.8 Allergy status to other drugs, medicaments and biological substances; Z72.89 Other problems related to lifestyle
CPT/HCPCS: 62321; J1030; J1040; Q9965

== ENCOUNTER → 2020-11-23 | Outpatient (CLI) | payer MEDICARE ==
--- NOTE | 2020-11-23 13:14 | PDOC4 ---
PROCEDURE Procedure Patient was consented for cervical epidural steroid injection. Risks were d iscussed including but not limited to: Bleeding, infection, possibility of epidural hematoma and subsequent neurological compromise, dural puncture, headaches, spinal cord and/or nerve damage, side effects of steroid medication, and poor results regarding pain control. Patient understands and wished to proceed. Procedure cervical epidural steroid injection at the C6-7 level, using local anesthetic under sterile prep and drape using C-arm fluoroscopic guidance under local anesthesia medications injected ;120 mg Depo-Medrol +5 mL normal saline and 2 mL contrast; condition at discharge is stable patient tolerated procedure well. and had no complications ALEE MELVIN MD Nov 23, 2020 13:14
--- NOTE | 2020-11-23 13:14 | PDOC ---
Progress Note - Pain Clinic Date of Service: DOS: DATE: 11/23/20 TIME: 13:10 Diagnosis: Dx: Cervical radiculopathy with cervical degenerative disc disease and cervical postlaminectomy syndrome Lumbar radiculopathy with lumbar degenerative disease and lumbar and lumbosacral spondylosis Thoracic radiculopathy thoracic degenerative disc disease History or Present Illness: HPI: 45-year-old male returns follow-up status post cervical epidural steroid injections x2 as well as previous thoracic epidural steroid injections patient reports his most recent ejection about 75% improved with the pain in the base of the neck and shoulder as well as the decreased amount of headaches and his right arm is doing much better patient reports he still has some pain in the base the neck and shoulders upper back into the shoulders bilaterally again slightly more on the right than the left but much improved patient rates it a 7 on scale 10 is worse over the past week 5 on average 3 its least is a 4 today patient reports is aching and sharp radiating in the base the neck and shoulders mostly posterior deltoid into the triceps also biceps and also into the forearms and fingers. Patient reports no new motor or sensory deficits no new bowel or bladder incontinence. Patient complains of some increasing pain in the low back however in the back itself with rotation of motion and extended standing as well as prolonged sitting but without radiation to the lower extremities. Physical Exam: VS: Blood pressure is 120/93 pulse 107 respirations 18 temperature is 98.6 F height is 6 foot weight is 200 pounds PE: PHYSICAL EXAMINATION: GENERAL: The patient is awake, alert, oriented, appropriate, very pleasant demeanor HEENT: Shows normocephalic, atraumatic. Extraocular movements are intact and symmetrical. NECK: Shows anterior throat supple without palpable lymphadenopathy noted. Sw allow reflex symmetrical. CHEST: Shows normal on inspection. Breath sounds are clear bilaterally, no rales or rhonchi. HEART: Shows S1, S2 clear. No murmurs auscultated. ABDOMEN: Soft, nontender, nondistended, obese. No palpable organomegaly is noted. BACK: Shows spine grossly in the midline. Normal-appearing cervical lordotic curvature. Cervical paraspinous muscles show symmetrical with inspection, on palpation some moderate tenderness diffusely bilaterally diffusely without significant radiation. Patient shows good rotation motion cervical spine both laterally as well as full extension full forward flexion with only minimal discomfort. There is slightly increased thoracic kyphosis, some minor flattening of the lumbar lordotic curvature. Lumbar paraspinous muscles show symmetrical on inspection, on palpation shows some moderate tenderness diffusely throughout the upper, middle and lower distribution of the paraspinous muscles without specific trigger points, without radiation of pain. The patient has good rotational motion of the lumbar spine, both laterally as well as extension and flexion with moderate tenderness with right and left lateral rotation greater than 10 degrees also significant tenderness with extension at greater than 10 degrees with axial loading of the lumbar spine but better with forward flexion 45 degrees without pain reported. No tenderness over the spinous processes, sacrum or sacroiliac regions. EXTREMITIES: Lower extremities show deep tendon reflexes 1+ in the patellar and tendo calcaneus tendons. Motor exam is 4 on a scale of 5 with right dorsiflexion, extension, quadriceps and hamstring flexion and 4/5 on the left. Peripheral pulses are 1+ posterior tibial. No peripheral edema is noted bilaterally. Lower extremities are warm and dry to touch, equal in color and appearance. Upper extremity show deep tendon reflexes 2+ in the bicep and triceps tendons, motor exam strong with desizing machine operator strength rated 5 out of 5 as is bicep and tricep flexion. Peripheral pulses are 2+ radial no peripheral edema is noted bilaterally. SKIN: Shows warm and dry, good turgor. No edema. No sores, rashes or bruising throughout. Procedure: Procedure: Options were discussed with the patient. Patient chart was reviewed his his current medication regimen updated current review of systems updated today as well. We will proceed with a third in the series cervical epidural steroid injection today with fluoroscopic guidance. Risks were discussed including but not limited to: Bleeding, infection, possibility of epidural hematoma and subsequent neurological compromise, dural puncture, headaches, spinal cord and/or nerve damage, side effects of steroid medication, and poor results regarding pain control. Patient understands and wished to proceed. Patient return to the clinic in approximate 2 weeks for follow-up, was counseled as to return appointment activity level and side effects to be aware of. Medication Injected: Med Injected: Procedure cervical epidural steroid injection at the C6-7 level, using local anesthetic under sterile prep and drape using C-arm fluoroscopic guidance under local anesthesia medications injected ;120 mg Depo-Medrol +5 mL normal saline and 2 mL contrast; condition at discharge is stable patient tolerated procedure well. and had no complications Condition at Discharge: Condition at Discharge: Condition at discharge stable, patient already procedure well and had no complications. ALEE MELVIN MD Nov 23, 2020 13:14
== END | disposition home or self-care (01) ==
LOC: PNCL 11:19
PROVIDERS: ATTEND Anesthesiology
DX: M50.10 Cervical disc disorder with radiculopathy, unspecified cervical region (principal); M51.16 Intervertebral disc disorders with radiculopathy, lumbar region; M96.1 Postlaminectomy syndrome, not elsewhere classified; M47.27 Other spondylosis with radiculopathy, lumbosacral region; M51.14 Intervertebral disc disorders with radiculopathy, thoracic region; E78.00 Pure hypercholesterolemia, unspecified; E03.9 Hypothyroidism, unspecified; M19.90 Unspecified osteoarthritis, unspecified site; F41.9 Anxiety disorder, unspecified; F32.9 Major depressive disorder, single episode, unspecified; Z87.891 Personal history of nicotine dependence; Z98.890 Other specified postprocedural states; Z79.899 Other long term (current) drug therapy; Z72.89 Other problems related to lifestyle; Z88.8 Allergy status to other drugs, medicaments and biological substances
CPT/HCPCS: 62321; J1030; J1040; Q9965

== ENCOUNTER → 2020-12-07 | Outpatient (CLI) | payer MEDICARE ==
[~2020-12-07] MED LIST changes: +BUPIVACAINE MPF 0.25% 10 ML VIAL. ONE
--- NOTE | 2020-12-07 10:42 | PDOC ---
Progress Note - Pain Clinic Date of Service: DOS: DATE: 12/07/20 TIME: 10:38 Diagnosis: Dx: Lumbar and lumbosacral spondylosis with lumbar degenerative disc disease Cervical radiculopathy with cervical degenerative disease and cervical postlaminectomy syndrome Thoracic radiculopathy with thoracic degenerative disc disease History or Present Illness: HPI: 45-year-old male returns follow-up status post cervical epidural steroid injection November 23, 2020. Patient reports about 40 to 50% improvement in the headaches are much better still some pain in the neck and shoulders but doing much better than it was increased activity greater ease of sleeping traveling using his upper extremities repetitive motions much more comfortably. Patient reports his main complaint now is low back pain which we talked about his last visit however is becoming much more noticeable now that his neck is doing better patient rates his low back as a 6 on scale 10 is worse over the past week 3 on average 1 at its least is a 4 today patient ports aching sharp shooting across the low back burning but not into the lower extremities patient reports is worse with extension standing sitting for prolonged periods better at night generally is not awakening from sleep some nights. Patient reports no new motor or se nsory deficits no new bowel or bladder incontinence or other complaints. Physical Exam: VS: Blood pressure is 142/82 pulse 78 respirations 18 temperature 98.7 F height 6 foot weight is 201 pounds PE: PHYSICAL EXAMINATION: GENERAL: The patient is awake, alert, oriented, appropriate, very pleasant in demeanor HEENT: Shows normocephalic, atraumatic. Extraocular movements are intact and symmetrical. NECK: Shows anterior throat supple without palpable lymphadenopathy noted. Swallow reflex symmetrical. CHEST: Shows normal on inspection. Breath sounds are clear bilaterally, no ra les or rhonchi. HEART: Shows S1, S2 clear. No murmurs auscultated. ABDOMEN: Soft, nontender, nondistended, obese. BACK: Shows spine grossly in the midline. Normal-appearing cervical lordotic curvature. Cervical paraspinous muscles show symmetrical with inspection, on palpation shows some moderate tenderness more diffusely in the low cervical distribution in the superior medial trapezius without radiation. Patient shows full rotation of motion cervical spine both laterally as well as extension flexion without significant difficulty. There is mildly increased thoracic kyphosis, some minor flattening of the lumbar lordotic curvature. Lumbar paraspinous muscles show symmetrical on inspection, on palpation shows some moderate tenderness diffusely throughout the upper, middle and lower distribution of the paraspinous muscles without specific trigger points, without radiation of pain. The patient has good rotational motion of the lumbar spine, both laterally as well as extension and flexion with some moderate pain with right left lateral rotation greater than 10 degrees and significant pain with extension greater than 10 degrees and axial loading of the lumbar spine, no tenderness with forward flexion 45 degrees. EXTREMITIES: Lower extremities show deep tendon reflexes 1+ in the patellar and tendo calcaneus tendons. Motor exam is 4 on a scale of 5 with right dorsiflexion, extension, quadriceps and hamstring flexion and 4/5 on the left. Peripheral pulses are 1 posterior tibial. No peripheral edema is noted b ilaterally. Lower extremities are warm and dry to touch, equal in color and appearance. Upper extremity show deep tendon reflexes 2+ in the bicep tricep tendons, motor exam strong with counterintelligence analyst strength rated 5 out of 5 and equal bilaterally. Peripheral pulses are 2+ radial. SKIN: Shows warm and dry, good turgor. No edema. No sores, rashes or bruising throughout. Procedure: Procedure: Options discussed with the patient. Patient chart reviews his current medication regimen updated current review of systems updated today as well. We will proceed with bilateral L4-5 and L5-S1 facet medial branch injections today with fluoroscopic guidance. Risks were discussed including but not limited to: Bleeding, infection, possibility of epidural hematoma and subsequent neurological compromise, dural puncture, headaches, spinal cord and/or nerve damage, side effects of steroid medication, and poor results regarding pain control. Patient understands and wished to proceed. Patient will return to the clinic in approximately 2 weeks for follow-up, was counseled as return appointment activity level and side effects to be aware of. Medication Injected: Med Injected: Under sterile prep and drape using C-arm fluoroscopic guidance AP and lateral and oblique views, bilateral L4-5 and L5-S1 facet joint injections were performed, using quinke needles with stylette's x4,, medications injected: 120 mg Depo-Medrol +4 cc 0.25% bupivacaine +2 cc contrast. Condition at discharge stable patient tolerated the procedure well and no complications. Condition at Discharge: Condition at Discharge: Condition at discharge stable, patient alert procedure well and had no complications. ALEE MELVIN MD Dec 07, 2020 10:42
--- NOTE | 2020-12-07 10:42 | PDOC4 ---
PROCEDURE Procedure Patient was consented for bilateral L4-5 and L5-S1 medial branch facet joint injections with fluoroscopic guidance. Risks were discussed including but not limited to: Bleeding, infection, possibility of epidural hematoma and subsequent neurological compromise, dural puncture, headaches, spinal cord and/or nerve damage, side effects of steroid medication, and poor results regarding pain control. Patient understands and wished to proceed. Under sterile prep and drape using C-arm fluoroscopic guidance AP and lateral and oblique views, bilateral L4-5 and L5-S1 facet joint injections were performed, using quinke needles with stylette's x4,, medications injected: 120 mg Depo-Medrol +4 cc 0.25% bupivacaine +2 cc contrast. Condition at discharge stable patient tolerated the procedure well and no complications. ALEE MELVIN MD Dec 07, 2020 10:42
== END | disposition home or self-care (01) ==
LOC: PNCL 10:00
PROVIDERS: ATTEND Anesthesiology
DX: M51.36 Other intervertebral disc degeneration, lumbar region (principal); M47.817 Spondylosis without myelopathy or radiculopathy, lumbosacral region; M50.10 Cervical disc disorder with radiculopathy, unspecified cervical region; M96.1 Postlaminectomy syndrome, not elsewhere classified; M51.14 Intervertebral disc disorders with radiculopathy, thoracic region; M54.5 Low back pain; E78.00 Pure hypercholesterolemia, unspecified; M19.90 Unspecified osteoarthritis, unspecified site; E03.9 Hypothyroidism, unspecified; F41.9 Anxiety disorder, unspecified; F32.9 Major depressive disorder, single episode, unspecified; Z87.891 Personal history of nicotine dependence; Z79.899 Other long term (current) drug therapy; Z98.890 Other specified postprocedural states; Z88.8 Allergy status to other drugs, medicaments and biological substances
CPT/HCPCS: 64493; 64494; J1030; J1040; J3490; Q9965

== ENCOUNTER → 2021-01-06 | Outpatient (CLI) | payer MEDICARE ==
[~2021-01-06] MED LIST changes: +LEVO137T3 PO
--- NOTE | 2021-01-06 10:18 | PDOC ---
Progress Note - Pain Clinic Date of Service: DOS: DATE: 01/06/21 TIME: 10:14 Diagnosis: Dx: Lumbar degenerative disease lumbar and lumbosacral spondylosis Cervical radiculopathy with cervical degenerative disease and cervical postlaminectomy syndrome Thoracic radiculopathy with thoracic degenerative disc disease History or Present Illness: HPI: 45-year-old male returns follow-up status post bilateral L4-5 and L5-S1 facet medial branch blocks. Patient reports about 80% improvement only for about 3 days or so patient reports pain returned fairly significantly more on the right than the left and present bilaterally in the low back with walking standing changing especially bending or repetitive motions patient has been doing some gardening which is exacerbated the pain fairly significantly over the past week. Patient reports is tingling and stabbing low back aching sharp and dull can radiate into the right hip at times patient reports no new motor or sensory deficits no new bowel or bladder incontinence reports his pain is a 6 on scale 10 is worse over the past week for an average to its least is a 4 today. Patient reports new medication changes of the levothyroxine which been increased and he feels that this is helping to some extent with his energy levels. Patient reports no new motor or sensory deficits no bladder incontinence or other complaints. Physical Exam: VS: Blood pressure is 132/80 pulse 86 respirations 18 temperature 98.2 F height is 70 inches weight is 190 pounds PE: PHYSICAL EXAMINATION: GENERAL: The patient is awake, alert, oriented, appropriate, very pleasant in demeanor HEENT: Shows normocephalic, atraumatic. Extraocular movements are intact and symmetrical. NECK: Shows anterior throat supple without palpable lymphadenopathy noted. Swallow reflex symmetrical. CHEST: Shows normal on inspection. Breath sounds are clear bilaterally, no rales or rhonchi bilaterally. HEART: Shows S1, S2 clear. No murmurs auscultated. ABDOMEN: Soft, nontender, nondistended, obese. BACK: Shows spine grossly in the midline. Normal-appearing cervical lordotic curvature. There is slightly increased thoracic kyphosis, some minor flattening of the lumbar lordotic curvature. Lumbar paraspinous muscles show symmetrical on inspection, on palpation shows some moderate tenderness diffusely throughout the upper, middle and lower distribution of the paraspinous muscles without specific trigger points, without radiation of pain. The patient has good rotational motion of the lumbar spine, both laterally as well as extension and flexion with moderate tenderness with right and left lateral rotation greater than 10 degrees in the back itself and significant tenderness with extension greater than 10 degrees with axial loading lumbar spine forward flexion 45 degrees performed without significant increase in pain. No tenderness over the spinous processes, sacrum or sacroiliac regions. EXTREMITIES: Lower extremities show deep tendon reflexes 1+ in the patellar and tendo calcaneus tendons. Motor exam is 4 on a scale of 5 with right dorsiflexion, extension, quadriceps and hamstring flexion and 4/5 on the left. Peripheral pulses are 1+ posterior tibial. No peripheral edema is noted bilaterally. Lower extremities are warm and dry. SKIN: Shows warm and dry, good turgor. No edema. No sores, rashes or bruising throughout. Procedure: Procedure: Options discussed with patient. Patient's old chart was reviewed his current medication regimen updated current review of systems updated today as well. We will proceed with a repeat L4-5 and L5-S1 medial branch facet blocks today with fluoroscopic guidance. Risks were discussed including but not limited to: Bleeding, infection, possibility of epidural hematoma and subsequent neurological compromise, dural puncture, headaches, spinal cord and/or nerve damage, side effects of steroid medication, and poor results regarding pain control. Patient understands and wished to proceed. Patient will return to the clinic in approximate 2 weeks for follow-up, was counseled as return appointment activity level and side effects to be aware. We did discuss potential radiofrequency ablation as he has had this about a year ago and did very well with it. Medication Injected: Med Injected: Under sterile prep and drape using C-arm fluoroscopic guidance AP and lateral and oblique views, bilateral L4-5 and L5-S1 facet joint MB's injections were performed, using quinke needles with stylette's x4,, medications injected: 120 mg Depo-Medrol +4 cc 0.25% bupivacaine +2 cc contrast. Condition at discharge stable patient tolerated the procedure well and no complications. Condition at Discharge: Condition at Discharge: Condition at discharge stable, patient already procedure well and had no complications. ALEE MELVIN MD Jan 06, 2021 10:18
--- NOTE | 2021-01-06 10:18 | PDOC4 ---
Procedure Note: Procedure Note: Patient was consented for bilateral L4-5 and L5-S1 medial branch facet blocks. Risks were discussed including but not limited to: Bleeding, infection, possibility of epidural hematoma and subsequent neurological compromise, dural puncture, headaches, spinal cord and/or nerve damage, side effects of steroid medication, and poor results regarding pain control. Patient understands and wished to proceed. Under sterile prep and drape using C-arm fluoroscopic guidance AP and lateral and oblique views, bilateral L4-5 and L5-S1 facet joint MB's injections were performed, using quinke needles with stylette's x4,, medications injected: 120 mg Depo-Medrol +4 cc 0.25% bupivacaine +2 cc contrast. Condition at discharge stable patient tolerated the procedure well and no complications. ALEE MELVIN MD Jan 06, 2021 10:18
== END | disposition home or self-care (01) ==
LOC: PNCL 09:40
PROVIDERS: ATTEND Anesthesiology
DX: M51.36 Other intervertebral disc degeneration, lumbar region (principal); M47.817 Spondylosis without myelopathy or radiculopathy, lumbosacral region; M50.10 Cervical disc disorder with radiculopathy, unspecified cervical region; M96.1 Postlaminectomy syndrome, not elsewhere classified; M51.14 Intervertebral disc disorders with radiculopathy, thoracic region; E78.00 Pure hypercholesterolemia, unspecified; E03.9 Hypothyroidism, unspecified; M19.90 Unspecified osteoarthritis, unspecified site; F41.9 Anxiety disorder, unspecified; F32.9 Major depressive disorder, single episode, unspecified; Z87.891 Personal history of nicotine dependence; Z79.899 Other long term (current) drug therapy; Z98.890 Other specified postprocedural states; Z88.8 Allergy status to other drugs, medicaments and biological substances
CPT/HCPCS: 64493; 64494; J1030; J1040; J3490; Q9965

== ENCOUNTER → 2021-01-24 | Outpatient (CLI) | payer MEDICARE ==
[~2021-01-24] MED LIST changes: -IOHEXOL 180 MG/ML 10 ML VIAL. ONE; +LIDOCAINE 1% PF 2 ML VIAL. ONE; +LIDOCAINE 2% PF 5 ML VIAL. ONE
--- NOTE | 2021-01-24 15:07 | PDOC ---
Progress Note - Pain Clinic Date of Service: DOS: DATE: 01/24/21 TIME: 15:03 Diagnosis: Dx: Lumbar and lumbosacral spondylosis, lumbar degenerative disc disease Cervical radiculopathy cervical degenerative disease and cervical postlaminectomy syndrome Thoracic radiculopathy thoracic degenerative disc disease History or Present Illness: HPI: 45-year-old male returns for follow-up status post bilateral L4-5 and L5-S1 facet medial branch blocks with about 80 to 90% improvement for 3 to 4 days following the injection series repeated December 07 as well as January 06 and patient returns today for reevaluation and we discussed repeating radiofrequency ablation as well with this previously November 2019 with near 100% improvement at least initially. Patient reports that after about 6 to 7 months the pain returned and initially had done well with lumbar facet medial branch blocks but now the pain is returning more frequently but with good diagnostic improvement short-term as noted. Patient reports pain in the low 6 equal to left without radiation to the lower extremities at this time rated as a 6 on scale 10 is worse over the past week 3 on average to its least is a 3 today patient scribes as tingling and stabbing aching sharp and radiating right to left in the low back worse with standing extended standing extension of the lumbar spine rotation right and left. Reports no new motor or sensory deficits no bowel or bladder incontinence. Physical Exam: VS: Blood pressure is 122/79 pulse 93 respirations 18 temperature is 98.5 F height is 70 inches weight is 194 pounds PE: PHYSICAL EXAMINATION: GENERAL: The patient is awake, alert, oriented, appropriate, very pleasant in demeanor HEENT: Shows normocephalic, atraumatic. Extraocular movements are intact and symmetrical. Oral cavity: Mucous membranes moist and pink. NECK: Shows anterior throat supple without palpable lymphadenopathy noted. Swallow reflex symmetrical. CHEST: Shows normal on inspection. Breath sounds are clear bilaterally. HEART: Shows S1, S2 clear. No murmurs auscultated. ABDOMEN: Soft, nontender, nondistended. No palpable organomegaly is noted. No rebound or guarding demonstrated. BACK: Shows spine grossly in the midline. Normal-appearing cervical lordotic curvature. There is slightly increased thoracic kyphosis, some minor flattening of the lumbar lordotic curvature. Lumbar paraspinous muscles show symmetrical on inspection, on palpation shows some moderate tenderness diffusely throughout the upper, middle and lower distribution of the paraspinous muscles, but without specific trigger points, without radiation of pain. The patient has good rota tional motion of the lumbar spine, both laterally as well as extension and flexion with significant pain reported with extension lumbar spine and axial loading greater than 10 degrees forward flexion 45 degrees is much more comfortable right left lateral rotation greater than 10 degrees elicits pain bilaterally but without radiation to the lower extremities. No tenderness over the spinous processes, sacrum or sacroiliac regions. EXTREMITIES: Lower extremities show deep tendon reflexes 2+ in the patellar and tendo calcaneus tendons. Motor exam is 5 on a scale of 5 with right dorsiflexion, extension, quadriceps and hamstring flexion and 5/5 on the left. Peripheral pulses are 1+ posterior tibial. No peripheral edema is noted bilaterally. Lower extremities are warm and dry. SKIN: Shows warm and dry, good turgor. No edema. No sores, rashes or bruising throughout. Procedure: Procedure: Options were discussed with the patient. Patient's old chart was reviewed his his current medication regimen updated current review of systems updated today as well. We will proceed with radiofrequency ablation of the bilateral L4-5 and L5-S1 medial branches with fluoroscopic guidance. Risks were discussed including but not limited to: Bleeding, infection, possibility of epidural hematoma and subsequent neurological compromise, dural puncture, headaches, spinal cord and/or nerve damage, potential thermal damage to the surrounding structures as well as motor nerves and permanent ischemic damage, side effects of steroid medication, and poor results regarding pain control. Patient understands and wished to proceed. Patient return to the clinic in approximately 4 weeks for follow-up, was counseled as to return appointment activity level and side effects to be aware of. Medication Injected: Med Injected: Under sterile prep and drape patient in prone position using C-arm fluoroscopic guidance patient's lumbar spine was visualized in both AP oblique and lateral views using 1% lidocaine to topically anesthetize the areas overlying the L3-4, L4-5 and L5-S1 facet joints at the point of the medial branches. Using a 22- gauge insulated radiofrequency needle with curved tips and stylette, the needles were advanced to contact the region of the facet with the medial branch targets. This was repeated at the L3-4 L4-5 and L5-S1 levels. Stylette was removed and using radiofrequency probe inserted into each needle individually at each level and then motor tested with no motor stimulation of the lower extremity. Patient did have some multifidus musculature contraction in the lumbar spine only but without radiation. At this time 1 cc of 2% lidocaine was then injected in each needle after motor testing but prior to radiofrequency ablation. Needle position was confirmed continuously throughout the radiofrequency ablation with both AP oblique and lateral views at each level. At this time radiofrequency ablation was carried out each level for 60 seconds at 80 C x 2 at each level with the tip of the needle turned 90 degrees after the first 60 seconds and then subsequent 60 seconds of radiofrequency ablation. Once radiofrequency ablation was completed solution containing 0.25% bupivacaine 1 cc and 20 mg Depo-Medrol was injected each level. Needle was then withdrawn. The procedure was repeated for the contralateral side as described as well. Patient had no paresthesias throughout the procedure no radiation of pain into the lower extremities no lower extremity motor response with motor testing bilaterally. Please see radiofrequency flowsheet for levels, temperatures, impedance, etc. Condition at Discharge: Condition at Discharge: Condition at discharge stable, patient already procedure well and had no complications. ALEE MELVIN MD Jan 24, 2021 15:07
--- NOTE | 2021-01-24 15:08 | PDOC4 ---
Procedure Note: ICD 10 Code: ICD 10 Code: M 47.816 M 47.817 Procedure Note: Patient was consented for bilateral lumbar L4-5 and L5-S1 medial branch radiofrequency ablation with fluoroscopic guidance. Risks were discussed including but not limited to: Bleeding, infection, possibility of epidural hematoma and subsequent neurological compromise, dural puncture, headaches, spinal cord and/or nerve damage, potential thermal injury to the surrounding structures as well as the motor nerves with permanent ischemic damage, side effects of steroid medication, and poor results regarding pain control. Patient understands and wished to proceed. Under sterile prep and drape patient in prone position using C-arm fluoroscopic guidance patient's lumbar spine was visualized in both AP oblique and lateral views using 1% lidocaine to topically anesthetize the areas overlying the L3-4, L4-5 and L5-S1 facet joints at the point of the medial branches. Using a 22-g auge insulated radiofrequency needle with curved tips and stylette, the needles were advanced to contact the region of the facet with the medial branch targets. This was repeated at the L3-4 L4-5 and L5-S1 levels. Stylette was removed and using radiofrequency probe inserted into each needle individually at each level and then motor tested with no motor stimulation of the lower extremity. Patient did have some multifidus musculature contraction in the lumbar spine only but without radiation. At this time 1 cc of 2% lidocaine was then injected in each needle after motor testing but prior to radiofrequency ablation. Needle positio n was confirmed continuously throughout the radiofrequency ablation with both AP oblique and lateral views at each level. At this time radiofrequency ablation was carried out each level for 60 seconds at 80 C x 2 at each level with the tip of the needle turned 90 degrees after the first 60 seconds and then subsequent 60 seconds of radiofrequency ablation. Once radiofrequency ablation was completed solution containing 0.25% bupivacaine 1 cc and 20 mg Depo-Medrol was injected each level. Needle was then withdrawn. The procedure was repeated for the contralateral side as described as well. Patient had no paresthesias throughout the procedure no radiation of pain into the lower extremities no lower extremity motor response with motor testing bilaterally. Please see radiofrequency flowsheet for levels, temperatures, impedance, etc. ALEE MELVIN MD Jan 24, 2021 15:08
== END ==
LOC: PNCL 13:18
PROVIDERS: ATTEND Anesthesiology
DX: M47.817 Spondylosis without myelopathy or radiculopathy, lumbosacral region (principal); M51.37 Other intervertebral disc degeneration, lumbosacral region; E78.00 Pure hypercholesterolemia, unspecified; F41.9 Anxiety disorder, unspecified; F32.9 Major depressive disorder, single episode, unspecified; M19.90 Unspecified osteoarthritis, unspecified site; M79.7 Fibromyalgia; Z86.010 Personal history of colon polyps; F17.210 Nicotine dependence, cigarettes, uncomplicated; Z98.890 Other specified postprocedural states
CPT/HCPCS: 64635; 64636; J1030; J1040; J3490

== ENCOUNTER → 2021-10-20 | Outpatient (CLI) | payer MEDICARE ==
[~2021-10-20] MED LIST changes: -BUPIVACAINE MPF 0.25% 10 ML VIAL. ONE; +DEXAMETHASONE PRES.FREE 10 MG/ML VIAL. ONE; +IMIP25TA35 PO; +IOHEXOL 180 MG/ML 10 ML VIAL. ONE; +LEVO150T5 PO; -LIDOCAINE 1% PF 2 ML VIAL. ONE; -LIDOCAINE 2% PF 5 ML VIAL. ONE; +TIZA-75 PO; -TIZA4TAB2 PO; -methylPREDNISolone ACETATE 40 MG/ML VIAL. ONE; -methylPREDNISolone ACETATE 80 MG/ML VIAL. ONE
--- NOTE | 2021-10-20 10:50 | PDOC ---
Progress Note - Pain Clinic Date of Service: DOS: DATE: 10/20/21 TIME: 10:44 Diagnosis: Dx: Lumbar radiculopathy with lumbar degenerative disease and lumbar, and lumbosacral spondylosis Cervical radiculopathy with cervical degenerative disease and cervical postlaminectomy syndrome Thoracic radiculopathy with thoracic degenerative disc disease History or Present Illness: HPI: 46-year-old male returns for follow-up status post lumbar radiofrequency ablation 10 February 2021 patient did very well with the ablation reports about 80% improvement for several months but now down to 30% his chief complaint today however is neck and upper extremity pain as well as upper back pain patient reports pain rating the bilateral upper extremities more on the right than the left into the posterior deltoid posterior triceps biceps as well as into the anterior aspect and posterior aspect of the forearms bilaterally again worse on the right side worse with repetitive motions weightlifting weightbearing reaching reaching overhead with his arms disturbed sleep about every 3-4 hours as well patient reports getting worse over the past 2 to 3months is getting more active with outdoor activities and taking care of his grandchildren. Patient reports his pain is a 7 on scale 10 is worse over the past week for an average 4 to [place] is a 4 today patient scribes tingling and burning cramping stabbing shooting can be on and off in intensity but unbearable at times related motion. Patient is using heating pad base the neck and shoulder more on the right than the left which is helpful as well. Patient reports no loss of motor function no bowel or bladder incontinence. Physical Exam: VS: Blood pressure is 114/57 pulse 93 respirations 18 temperature 90.3 F weight is 190 pounds. PE: PHYSICAL EXAMINATION: GENERAL: The patient is awake, alert, oriented, appropriate, very pleasant in demeanor HEENT: Shows normocephalic, atraumatic. Extraocular movements are intact and symmetrical. NECK: Shows anterior throat supple without palpable lymphadenopathy noted. Swallow reflex symmetrical. CHEST: Shows normal on inspection. Breath sounds are clear bilaterally, distant but no rales or rhonchi auscultated. HEART: Shows S1, S2 clear. No murmurs auscultated. ABDOMEN: Soft, nontender, nondistended. No palpable organomegaly is noted. BACK: Shows spine grossly in the midline. Normal-appearing cervical lordotic curvature. There is slightly increased thoracic kyphosis, some mild flattening of the lumbar lordotic curvature. Lumbar paraspinous muscles show symmetrical on inspection, on palpation shows some moderate tenderness diffusely throughout the upper, middle and lower distribution of the paraspinous muscles, but without specific trigger points, without radiation of pain. The patient has good rotational motion of the lumbar spine, both laterally as well as extension and flexion without significant difficulty. EXTREMITIES: Lower extremities show deep tendon reflexes in the patellar and tendo calcaneus tendons. Motor exam is 5 on a scale of 5 with right dorsiflexion, extension, quadriceps and hamstring flexion and 5/5 on the left. Peripheral pulses are 1+ posterior tibial. No peripheral edema is noted bilaterally. Lower extremities are warm and dry to touch, equal in color and appearance. Upper extremities show deep tendon reflexes 2+ bicep tricep tendons, motor exam is 4 on a scale 5 with right weight calculator strength bicep tricep flexion 5 x 5 on the left. Shoulder shrug is strong and intact without loss of strength on resistance bilaterally. SKIN: Shows warm and dry, good turgor. No edema. No sores, rashes or bruising throughout. Procedure: Procedure: Options were discussed with patient. Patient's old chart was reviewed as was his current medication regimen updated, and current review of systems updated today as well. We will proceed with a cervical epidural steroid injection today with fluoroscopic guidance. Risks were discussed including but not limited to: Bleeding, infection, possibility of epidural hematoma and subsequent neurological compromise, dural puncture, headaches, spinal cord and/or nerve damage, side effects of steroid medication, and poor results regarding pain control. Patient understands and wished to proceed. Patient will return to the clinic in approximately 2 weeks for follow-up, was counseled as to return appointment, activity level, and side effects to be aware of. Medication Injected: Med Injected: Procedure cervical epidural steroid injection at the C6-7 level, using local anesthetic under sterile prep and drape using C-arm fluoroscopic guidance under local anesthesia medications injected ; 20 mg dexamethasone +5 mL normal saline and 2 mL contrast; condition at discharge is stable patient tolerated procedure well. and had no complications Condition at Discharge: Condition at Discharge: Condition at discharge is stable, patient tolerated procedure well and had no complications. ALEE MELVIN MD Oct 20, 2021 10:50
--- NOTE | 2021-10-20 10:51 | PDOC4 ---
Procedure Note: ICD 10 Code: ICD 10 Code: M54.12 M50.30 722.81 Procedure Note: Patient was consented for cervical epidural steroid injection with fluoroscopic guidance. Risks were discussed including but not limited to: Bleeding, infection, possibility of epidural hematoma and subsequent neurological compromise, dural puncture, headaches, spinal cord and/or nerve damage, side effects of steroid medication, and poor results regarding pain control. Patient understands and wished to proceed. Procedure cervical epidural steroid injection at the C6-7 level, using local a nesthetic under sterile prep and drape using C-arm fluoroscopic guidance under local anesthesia medications injected ; 20 mg dexamethasone +5 mL normal saline and 2 mL contrast; condition at discharge is stable patient tolerated procedure well. and had no complications ALEE MELVIN MD Oct 20, 2021 10:50
== END | disposition home or self-care (01) ==
LOC: PNCL 09:30
PROVIDERS: ATTEND Anesthesiology
DX: M50.10 Cervical disc disorder with radiculopathy, unspecified cervical region (principal); M51.16 Intervertebral disc disorders with radiculopathy, lumbar region; M54.12 Radiculopathy, cervical region; M47.26 Other spondylosis with radiculopathy, lumbar region; M96.1 Postlaminectomy syndrome, not elsewhere classified; M51.14 Intervertebral disc disorders with radiculopathy, thoracic region; M19.90 Unspecified osteoarthritis, unspecified site; E78.00 Pure hypercholesterolemia, unspecified; E03.9 Hypothyroidism, unspecified; F41.9 Anxiety disorder, unspecified; F32.9 Major depressive disorder, single episode, unspecified; Z87.891 Personal history of nicotine dependence; Z79.899 Other long term (current) drug therapy; Z98.890 Other specified postprocedural states
CPT/HCPCS: 62321; J1100; Q9965